=== PATIENT | female | born 1980 | race Caucasian/White ===

== ENCOUNTER 2016-10-29 08:49 | Emergency (ER) | payer OTHER ==
[2016-10-29] MEDS ORDERED: Acetaminophen TAB* 325 MG PO ONE (09:12)
[2016-10-29] MEDS ORDERED: Albuterol/Ipratropium NEB.SOL* Albuterol 2.5 MG/Ipratropium 0.5 MG 3 ML INH ONE (09:12)
--- NOTE | 2016-10-29 09:32 | ED ---
Jt Valdez Karl, scribed for Ellie Vasquez MD on 10/29/16 at 0904 . Influenza-Like Illness - HPI Summary HPI Summary: Pt is a 36 y/o female that presents to the ED c/o "cold-like symptoms" that began 4 days ago and have worsened since. Pt reported that she was having head/ chest cold symptoms 4 days ago and felt like they were clearing up on Saturday Yesterday morning when she woke up and symptoms returned. Pt stated that since yesterday morning it feels like her body is "on fire" and she is suffering from generalized body aches, cough, sore throat, nasal congestion, and vomiting after she eats. Pt states able to drink ok. pt stated that she has tried Nyquil and Ibuprofen to treat her symptoms with her last dose of ibuprofen being at 04:00 this morning. Pt also noted that she has been wheezing during respirations. Pt has been using MDI - last use 6am. Pt has not documented a fever, but feels warm intermittently. Pt concerned has the flu. Call her PCP and was sent to the ED for further eval. Pt did not get flu vaccine. Pt denied ear pain, rash, chest pain, abdominal pain, dysuria, hematuria, itching, or odor. Hx: asthma, chronic migraines, smoker. - History of Current Complaint Chief Complaint: EDFever Time Seen by Provider: 10/29/16 09:00 Hx Obtained From: Patient Onset/Duration: Gradual Onset, Lasting Days - 4, Worse Since - yesterday morning Severity: Moderate Associated Signs & Symptoms: Myalgia, Cough, Sore Throat, Nasal Congestion, Vomiting - Allergy/Home Medications Allergies/Adverse Reactions: Allergies Allergy/AdvReac Type Severity Reaction Status Date / Time Adhesive Tape [Paper Tape] Allergy Unknown Verified 10/15/16 22:16 Reaction Details Aspirin Allergy stops her Verified 10/15/16 22:16 heart Penicillins Allergy stops her Verified 10/15/16 22:16 heart Sulfamethoxazole Allergy Hives Verified 10/15/16 22:16 w/Trimethoprim [From Bactrim] PMH/Surg Hx/FS Hx/Imm Hx Previously Healthy: Yes Endocrine/Hematology History: Denies: Hx Anticoagulant Therapy, Hx Diabetes, Hx Thyroid Disease Cardiovascular History: Denies: Hx Hypertension Respiratory History: Reports: Hx Asthma - albuterol as needed, Hx Chronic Obstructive Pulmonary Disease (COPD) GI History: Denies: Hx Ulcer Neurological History: Reports: Hx Migraine Psychiatric History: Reports: Hx Anxiety, Hx Depression - Surgical History Surgery Procedure, Year, and Place: [place] 10/2012. 10/08 abcess removed from face. csection x2 2001, 2002 - Immunization History Date of Tetanus Vaccine: UTD Date of Influenza Vaccine: 2014 Infectious Disease History: No Infectious Disease History: Reports: Hx of Known/Suspected MRSA - son has mrsa Denies: Hx Clostridium Difficile, Hx Hepatitis, Hx Human Immunodeficiency Virus (HIV), Hx Shingles, Hx Tuberculosis, Traveled Outside the [place] in Last 30 Days - Family History Known Family History: Positive: Cardiac Disease, Diabetes, Other - uterine CA - mother - Social History Alcohol Use: None Hx Substance Use: No Substance Use Type: Reports: None Hx Tobacco Use: Yes Smoking Status (MU): Light Every Day Tobacco Smoker Type: Cigarettes Amount Used/How Often: 1/2 ppd Review of Systems Positive: Fever - tactile. Negative: Chills Eyes: Negative Negative: Blurred Vision, Drainage, Erythema Positive: Sore Throat, Nasal Discharge - and congestion. Negative: Ear Ache Cardiovascular: Negative Negative: Chest Pain Respiratory: Other - wheezing Positive: Cough Positive: Vomiting. Negative: Nausea Negative: discharge - itching, odor Positive: Myalgia - generalized body aches Negative: Rash Neurological: Negative Negative: Weakness, Numbness Psychological: Normal All Other Systems Reviewed And Are Negative: Yes Physical Exam Triage Information Reviewed: Yes Vital Signs On Initial Exam: Initial Vitals Temp Pulse Resp BP Pulse Ox 97.9 F 104 16 129/65 98 10/29/16 08:52 10/29/16 08:52 10/29/16 08:52 10/29/16 08:52 10/29/16 08:52 Vital Signs Reviewed: Yes Appearance: Positive: No Pain Distress, Well-Nourished. Negative: Well- Appearing - congestion, nasal, tired appearing Skin: Positive: Warm, Skin Color Reflects Adequate Perfusion, Dry Head/Face: Positive: Normal Head/Face Inspection Eyes: Positive: Normal, EOMI, MARYAM ENT: Positive: Hearing grossly normal, Other - mild fluid b/l TM - no erythema, bulge, retraction turbinates inflammed + PND no exudate, no erythema uvula midline. Negative: Pharynx normal, TM bulging, TM dull, TM red Neck: Positive: Supple, Nontender, No Lymphadenopathy Respiratory/Lung Sounds: Positive: Clear to Auscultation, Other - few scattered wheeze, no rhonci No retraction + BS throughout. Negative: Rales, Rhonchi, Wheezes Cardiovascular: Positive: Normal, RRR. Negative: IRR, Murmur Abdomen Description: Positive: Nontender, No Organomegaly. Negative: Soft Bowel Sounds: Positive: Present Musculoskeletal: Positive: Normal Neurological: Positive: Normal, Sensory/Motor Intact, Alert, Oriented to Person Place, Time. Negative: Slurred Speech Psychiatric: Positive: Normal AVPU Assessment: Alert - Joyce Coma Scale Best Eye Response: 4 - Spontaneous Best Motor Response: 6 - Obeys Commands Best Verbal Response: 5 - Oriented Diagnostics - Vital Signs Vital Signs Temp Pulse Resp BP Pulse Ox 10/29/16 08:52 97.9 F 104 16 129/65 98 - Laboratory Lab Statement: Any lab studies that have been ordered have been reviewed, and results considered in the medical decision making process. - Radiology CXR Xray Interpretation: No Acute Changes Radiology Interpretation Completed By: Radiologist - IMPRESSION: NO ACTIVE DISEASE. Re-Evaluation - Re-Evaluation First Eval Change: Improved - Wheezing improved strep and flu neg Will give Rx pred, flonase, z pack work note PCP f/u rest hydrate d/w pt secreation precautions Flu Symptom Course/Dx - Course Course Of Treatment: Strep Test: Negative. Influenza A & B Test: Negative. Assessment/Plan: Pt presents with sinus congestion, sore throat, body aches, cough and wheeze. Diff: URI, strep, sinus infection, influenza, pna. Plan: neb , cxr, flu/strep, APAP - will check as pt unsure of status - Diagnoses Provider Diagnoses: URI (upper respiratory infection), Bronchitis Discharge - Discharge Plan Condition: Stable Disposition: HOME Forms: *Work Release Referrals: Rene Barrera MD [Primary Care Provider] - Additional Instructions: - Stay well hydrated - drink plenty on non-alcoholic, non-caffinated beverage - For the first 8 hours - eat and drink bland foods - dry toast, crackers, scrambled eggs, pasta noodles. If you tolerate this okay, slowly add food to your diet. Wait until you are feeling better before eating spicy food, acidic food, tomato based food - Use nasal spray as directed for congestion. Take prednisone as prescribed, - Okay to alternate ibuprofen (advil, motrin) and tylenol every 3 hours for pain or fever - Take antibiotics as prescribed until gone - Once you have been on antibiotics for 2 days, change your pillow case and your toothbrush -contact your doctor to schedule a follow-up appointment. Contact your doctor or return with questions or concerns The documentation as recorded by the Jt thornton Karl accurately reflects the service I personally performed and the decisions made by , Ellie Vasquez MD.
--- NOTE | 2016-10-29 10:00 | RAD ---
INDICATION: Cough and fever COMPARISON: October 13, 2014 TECHNIQUE: PA and lateral dual-energy views were obtained. FINDINGS: Bones/Soft Tissues: There are no acute bony findings. Cardiomediastinal: The cardiomediastinal silhouette is normal. Lungs: There are no infiltrates. Pleura: There are no pleural effusions. Other: None IMPRESSION: NO ACTIVE DISEASE.
[2016-10-29 10:26] VITALS: BP 128/74
== END 2016-10-29 10:24 | disposition home or self-care (01) ==
LOC: ED 08:49
DX: J44.0 Chronic obstructive pulmonary disease with (acute) lower respiratory infection (principal); J45.909 Unspecified asthma, uncomplicated; F41.9 Anxiety disorder, unspecified; F32.9 Major depressive disorder, single episode, unspecified; F17.210 Nicotine dependence, cigarettes, uncomplicated; Z88.0 Allergy status to penicillin; Z88.2 Allergy status to sulfonamides; Z88.6 Allergy status to analgesic agent
CPT/HCPCS: 71020; 87502; 87651; 99282; A9270-GY

== ENCOUNTER 2016-10-29 22:26 | Emergency (ER) | payer OTHER ==
[2016-10-29] MEDS ORDERED: Ketorolac INJ* 60 MG/2 ML VIAL IM ONE (22:43)
--- NOTE | 2016-10-29 23:28 | ED ---
Ramon Valdez Erika, scribed for Mauricio Ardon MD on 10/29/16 at 2249 . Headache - HPI Summary HPI Summary: Patient is a 36-year-old female presenting to the ED with c/o a headache. Pt reports that she was seen in the ED this morning for cold-like symptoms, and was diagnosed with bronchitis. She was prescribed Abx, but was unable to mushroom picker the prescription today. She reports she developed a migraine this evening, and took ibuprofen but that did not alleviate the pain. She states she then developed pallor, facial numbness, and palpitations. She also felt nauseated, which has resolved. Pt has a Hx migraines - most recently 1 week ago - and used to take Topamax and magnesium oxide. FHx cardiac disease. Pt is followed by Dr. Barrera. - History Of Current Complaint Chief Complaint: EDHeadache Stated Complaint: HEADACHE,ELEVATED HEART RATE Time Seen by Provider: 10/29/16 22:35 Hx Obtained From: Patient Hx Last Menstrual Period: 09/06/16 Onset/Duration: Gradual Onset, Started hours ago, Still Present Initially Headache Was: Moderate Timing: Constant Character: Migraine Aggravating Factor: Nothing Allevating Factors: Nothing Associated Signs And Symptoms: Nausea - Allergies/Home Medications Allergies/Adverse Reactions: Allergies Allergy/AdvReac Type Severity Reaction Status Date / Time Adhesive Tape [Paper Tape] Allergy Unknown Verified 10/15/16 22:16 Reaction Details Aspirin Allergy stops her Verified 10/15/16 22:16 heart Penicillins Allergy stops her Verified 10/15/16 22:16 heart Sulfamethoxazole Allergy Hives Verified 10/15/16 22:16 w/Trimethoprim [From Bactrim] PMH/Surg Hx/FS Hx/Imm Hx Endocrine/Hematology History: Denies: Hx Anticoagulant Therapy, Hx Diabetes, Hx Thyroid Disease Cardiovascular History: Denies: Hx Hypertension Respiratory History: Reports: Hx Asthma - albuterol as needed, Hx Chronic Obstructive Pulmonary Disease (COPD) GI History: Denies: Hx Ulcer Neurological History: Reports: Hx Migraine Psychiatric History: Reports: Hx Anxiety, Hx Depression - Surgical History Surgery Procedure, Year, and Place: [place] 10/2012. 10/08 abcess removed from face. csection x2 2001, 2002 - Immunization History Date of Tetanus Vaccine: UTD Date of Influenza Vaccine: 2014 Infectious Disease History: No Infectious Disease History: Reports: Hx of Known/Suspected MRSA - son has mrsa Denies: Hx Clostridium Difficile, Hx Hepatitis, Hx Human Immunodeficiency Virus (HIV), Hx Shingles, Hx Tuberculosis, Traveled Outside the [place] in Last 30 Days - Family History Known Family History: Positive: Cardiac Disease, Hypertension, Diabetes, Other - uterine CA - mother - Social History Alcohol Use: None Hx Substance Use: No Substance Use Type: Reports: None Hx Tobacco Use: Yes Smoking Status (MU): Light Every Day Tobacco Smoker Type: Cigarettes Amount Used/How Often: 1/2 ppd Review of Systems Constitutional: Other - Pallor Positive: Sore Throat, Nasal Discharge Positive: Palpitations Positive: Cough Positive: Nausea - resolved Positive: Headache, Numbness - facial All Other Systems Reviewed And Are Negative: Yes Physical Exam Triage Information Reviewed: Yes Vital Signs On Initial Exam: Initial Vitals Temp Pulse Resp BP Pulse Ox 98.8 F 92 18 127/94 94 10/29/16 22:32 10/29/16 22:32 10/29/16 22:32 10/29/16 22:32 10/29/16 22:32 Vital Signs Reviewed: Yes Appearance: Positive: Well-Appearing, No Pain Distress Skin: Positive: Warm Head/Face: Positive: Normal Head/Face Inspection. Negative: Temporal Artery Tenderness Eyes: Positive: EOMI, MARYAM ENT: Positive: Hearing grossly normal Neck: Positive: Supple Respiratory/Lung Sounds: Positive: Breath Sounds Present, Decreased Breath Sounds Cardiovascular: Positive: Normal Abdomen Description: Positive: Nontender, No Organomegaly, Soft Bowel Sounds: Positive: Present Musculoskeletal: Positive: Strength/ROM Intact Neurological: Positive: Sensory/Motor Intact, Alert, Oriented to Person Place, Time Psychiatric: Positive: Normal Diagnostics - Vital Signs Vital Signs Temp Pulse Resp BP Pulse Ox 10/29/16 22:32 98.8 F 92 18 127/94 94 - Laboratory Lab Statement: Any lab studies that have been ordered have been reviewed, and results considered in the medical decision making process. - EKG 22:25 Cardiac Rate: NL - at 83 bpm EKG Rhythm: Sinus Rhythm Re-Evaluation - Re-Evaluation First Eval Re-Evaluation Time: 23:47 Change: Improved Headache Course/Dx - Course Assessment/Plan: A 36 y/o F presents to the ED with a CC of headache. She was given Toradol in the ED, and states she feels improved on re-evaluation. Pt will be discharged home with follow up from her PCP - Diagnoses Provider Diagnoses: Migraine headache Discharge - Discharge Plan Condition: Stable Disposition: HOME Patient Education Materials: Migraine Headache (ED) Referrals: Rene Barrera MD [Primary Care Provider] - Additional Instructions: Please follow up with your PCP The documentation as recorded by the Ramon thornton Erika accurately reflects the service I personally performed and the decisions made by me, Mauricio Ardon MD.
[2016-10-30 00:15] VITALS: BP 120/83
== END 2016-10-30 00:14 | disposition home or self-care (01) ==
LOC: ED 22:26
DX: G43.909 Migraine, unspecified, not intractable, without status migrainosus (principal); R00.2 Palpitations; R20.0 Anesthesia of skin
CPT/HCPCS: 93005; 96374; 99282; J1885

== ENCOUNTER 2016-11-16 09:32 | Emergency (ER) | payer OTHER ==
[2016-11-16] MEDS ORDERED: Famotidine IV* 10 MG/ML 2 ML (20 mg) IV ONE (16:02)
[2016-11-16] MEDS ORDERED: NS 0.9% 1000 ML* 2,000 ML IV ONE (16:02)
[2016-11-16] MEDS ORDERED: Ketorolac INJ* 30 MG/ML 1 ML VIAL IV ONE (16:02)
[2016-11-16] MEDS ORDERED: Ondansetron INJ* 2 MG/ML VIAL IV ONE (16:02)
[2016-11-16 16:30] LABS: Hematocrit 44 % (35-47); Hemoglobin 14.4 g/dl (12.0-16.0); Mean Corpuscular HGB Conc 32 g/dl (31-36); Mean Corpuscular Hemoglobin 29 pg (27-31); Mean Corpuscular Volume 90 fL (80-97); Mean Platelet Volume 10 um3 (7.4-10.4); Red Blood Count 4.94 10^6/ul (4.0-5.4); Red Cell Distribution Width 14 % (10.5-15); White Blood Count 15.4 10^3/ul (3.5-10.8)
--- NOTE | 2016-11-16 16:36 | ED ---
Abdominal Pain/Female - HPI Summary HPI Summary: Patient here with a CC of nausea, vomiting, chills, weakness and muscle aches present since last evening. Denies D/C. Johnny hematemasis. Denies melena. States has vomited 10+ times. Did not eat anything unusual and no one else became sick with eating the same food. Denies sick contacts. Has multiple medications she takes daily. PMHx of asthma, migraines, "twisted intestines." She is to have surgery to get them untwisted, but is unsure when that will be scheduled. Patient thinks she may have had a fever, but did not check. - History of Current Complaint Chief Complaint: EDAbdPain Stated Complaint: VOMITING / DIZZY Hx Obtained From: Patient Hx Last Menstrual Period: 09/06/16 ?: No Onset/Duration: Sudden Onset Timing: Constant Severity Initially: Moderate Severity Currently: Moderate Pain Intensity: 8 Pain Scale Used: 0-10 Numeric Location: Diffuse - nausea Radiates: No Character: Sharp, Cramping Aggravating Factor(s): Nothing Alleviating Factor(s): Vomiting Associated Signs and Symptoms: Positive: Decreased Appetite, Nausea, Vomiting - Risk Factors Ectopic Risk Factor: Maternal Age ^ 30 Ovarian Torsion Risk Factor: Reproductive Age Allergies/Adverse Reactions: Allergies Allergy/AdvReac Type Severity Reaction Status Date / Time Adhesive Tape [Paper Tape] Allergy Unknown Verified 11/16/16 09:40 Reaction Details Aspirin Allergy stops her Verified 11/16/16 09:40 heart Penicillins Allergy stops her Verified 11/16/16 09:40 heart Sulfamethoxazole Allergy Hives Verified 11/16/16 09:40 w/Trimethoprim [From Bactrim] PMH/Surg Hx/FS Hx/Imm Hx Previously Healthy: Yes Endocrine/Hematology History: Denies: Hx Anticoagulant Therapy, Hx Diabetes, Hx Thyroid Disease Cardiovascular History: Denies: Hx Hypertension Respiratory History: Reports: Hx Asthma - albuterol as needed, Hx Chronic Obstructive Pulmonary Disease (COPD) GI History: Denies: Hx Ulcer Neurological History: Reports: Hx Migraine Psychiatric History: Reports: Hx Anxiety, Hx Depression - Surgical History Surgery Procedure, Year, and Place: [place] 10/2012. 10/08 abcess removed from face. csection x2 2001, 2002 - Immunization History Date of Tetanus Vaccine: UTD Date of Influenza Vaccine: 2014 Infectious Disease History: No Infectious Disease History: Reports: Hx of Known/Suspected MRSA - son has mrsa Denies: Hx Clostridium Difficile, Hx Hepatitis, Hx Human Immunodeficiency Virus (HIV), Hx Shingles, Hx Tuberculosis, Traveled Outside the [place] in Last 30 Days - Family History Known Family History: Positive: Cardiac Disease, Hypertension, Diabetes, Other - uterine CA - mother - Social History Occupation: Employed Full-time Lives: With Family Alcohol Use: None Hx Substance Use: No Substance Use Type: Reports: None Hx Tobacco Use: Yes Smoking Status (MU): Light Every Day Tobacco Smoker Type: Cigarettes Amount Used/How Often: 1/2 ppd Review of Systems Positive: Fatigue, Skin Diaphoresis Eyes: Negative Positive: Ear Ache Cardiovascular: Negative Respiratory: Negative Positive: Vomiting, Nausea Genitourinary: Negative Musculoskeletal: Negative Skin: Negative Positive: Headache Psychological: Normal All Other Systems Reviewed And Are Negative: Yes Physical Exam Triage Information Reviewed: Yes Vital Signs On Initial Exam: Initial Vitals Temp Pulse Resp BP Pulse Ox 99.5 F 106 16 127/71 100 11/16/16 09:37 11/16/16 09:37 11/16/16 09:37 11/16/16 09:37 11/16/16 09:37 Appearance: Positive: No Pain Distress, Ill-Appearing Skin: Positive: Warm, Skin Color Reflects Adequate Perfusion Head/Face: Positive: Normal Head/Face Inspection Eyes: Positive: Normal, EOMI, MARYAM, Conjunctiva Clear ENT: Positive: Normal ENT inspection, Pharynx normal, TMs normal Neck: Positive: Nontender, No Lymphadenopathy Respiratory/Lung Sounds: Positive: Clear to Auscultation, Breath Sounds Present Cardiovascular: Positive: Normal Abdomen Description: Positive: Nontender, No Organomegaly, Soft, Other: - no mcburney's point, negative rovsings, negative obturator, negative psoas Bowel Sounds: Positive: Present Musculoskeletal: Positive: Normal, Strength/ROM Intact Neurological: Positive: Normal Psychiatric: Positive: Normal AVPU Assessment: Alert Diagnostics - Vital Signs Vital Signs Temp Pulse Resp BP Pulse Ox 11/16/16 15:23 99.7 F 94 18 108/71 96 11/16/16 09:37 99.5 F 106 16 127/71 100 - Laboratory Result Diagrams: 11/16/16 15:25 11/16/16 16:51 Lab Statement: Any lab studies that have been ordered have been reviewed, and results considered in the medical decision making process. Abdominal Pain Fem Course/Dx - Course Course Of Treatment: 2 bags fluids, zofran, pepcid and toradol given. no fever, neg psoas, obturator and wbc WNL. Sudden onset 2 hours after eating, food relation likely. Flu negative. Patient feeling much better and ready to go home. - Diagnoses Differential Diagnosis: Positive: Peptic Ulcer Disease, Other - nausea, vomiting , gastroenteritis, appendicitis Provider Diagnoses: Nausea & vomiting Is Visit Related: No Discharge - Discharge Plan Condition: Stable Disposition: HOME Prescriptions: Naproxen TAB* [Naprosyn TAB*] 500 mg PO Q8H PRN #30 tab MDD 3 PRN Reason: Pain Ondansetron TAB* [Zofran Tab*] 4 mg PO Q6H PRN #10 tab MDD 4 PRN Reason: Nausea Patient Education Materials: Acute Nausea and Vomiting (ED) Referrals: Rene Barrera MD [Primary Care Provider] - Additional Instructions: Dx. Nausea and vomiting If you are having episodes of vomiting, you may become dehydrated. Drink plenty of fluids. If you feel you cannot keep enough fluids down, you may supplement with drinks like Gatorade or V8 juice. This will help balance your electrolytes which are lost during dehydration. Take any medication prescribed to you as directed. Zofran: This medicine may make you dizzy. Do not drive or do anything else that could be dangerous until you know how this medicine affects you. Naproxen 500mg tabs: Take 1 tab every 8 hours as needed for pain. If you develop fever, chills, worsening pain uncontrolled with OTC medications, please come back to ED.
[2016-11-16 17:16] LABS: BUN/Creatinine Ratio 26.9 (8-20); Calcium 8.7 mg/dL (8.6-10.3); EGFR African American 128.8 (>60); EGFR Non-African American 100.2 (>60); Globulin 2.8 g/dL (2-4); Magnesium 1.9 mg/dL (1.9-2.7); Potassium 3.5 mmol/L (3.5-5.0); Total Bilirubin 1.1 mg/dL (0.2-1.0); Total Protein 6.8 g/dL (6.4-8.9)
[2016-11-16 17:41] VITALS: BP 109/72
[2016-11-16] MEDS ORDERED: Ondansetron TAB* 4 MG PO ONE (18:41)
[2016-11-16] MEDS ORDERED: Ondansetron ODT TAB* 4 MG ONE (18:43)
[2016-11-16 18:44] LABS: Urine Bacteria Absent (Absent); Urine Bilirubin Negative (Negative); Urine Glucose Negative (Negative); Urine Nitrite Negative (Negative)
== END 2016-11-16 18:51 | disposition home or self-care (01) ==
LOC: ED 09:32
DX: R11.2 Nausea with vomiting, unspecified (principal); R53.1 Weakness; F17.210 Nicotine dependence, cigarettes, uncomplicated; R51 Headache; H92.09 Otalgia, unspecified ear; R53.83 Other fatigue
CPT/HCPCS: 36415; 80053; 81003; 81015; 83690; 83735; 84702; 85025; 87086; 87502; 96361; 96374; 96375; 99283; A9270-GY; J1885; J2405

== ENCOUNTER 2016-12-17 15:32 | Emergency (ER) | payer OTHER ==
[2016-12-17 15:45] VITALS: BP 125/75
[2016-12-17] MEDS ORDERED: NS 0.9% 1000 ML* 1,000 ML IV ONE (17:05)
[2016-12-17] MEDS ORDERED: Morphine INJ* 2 MG/ML 1 ML CARPUJECT IV ONE (17:06)
--- NOTE | 2016-12-18 19:49 | UC ---
Fredis Valdez Aidan, scribed for Sangeeta Merlos MD on 12/17/16 at 1705 . Complaint Female HPI - HPI Summary HPI Summary: 36 y/o female presents to the Urgent Care with a complaint of acute, constant, severe (reported 10/10) right flank pain and gross hematuria for the past 24 hours. She has a history of kidney stones and had her last one "laser blasted" roughly 6 months ago in [facility]. Last time she had a stone, it was as " large as a half-dollar" and she had stents. Five hours ago, she took Tylenol, which did not alleviate much pain at all. Pt denies and had her period 2 days ago. Lastly, she is allergic to penicillin and aspirin. Pt is new to this area and is not established with urology in [place]. - History Of Current Complaint Chief Complaint: UCGU Stated Complaint: BLOOD IN URINE.BACK PAIN Time Seen by Provider: 12/17/16 16:53 Hx Obtained From: Patient Hx Last Menstrual Period: 12/14/16 ?: No Onset/Duration: Sudden Onset, Lasting Hours, Still Present Timing: Constant, Lasting Hours Severity Initially: Severe Severity Currently: Severe Pain Intensity: 10 Pain Scale Used: 0-10 Numeric Character: Sharp Aggravating Factor(s): Nothing Alleviating Factor(s): Nothing - tylenol did not alleviate her pain Associated Signs And Symptoms: Negative: Negative - right flank pain and hematuria Related Hx: Similar Episode/Dx as: - kidney stones - Allergies/Home Medications Allergies/Adverse Reactions: Allergies Allergy/AdvReac Type Severity Reaction Status Date / Time Adhesive Tape [Paper Tape] Allergy Unknown Verified 12/17/16 15:46 Reaction Details Aspirin Allergy stops her Verified 12/17/16 15:46 heart Penicillins Allergy stops her Verified 12/17/16 15:46 heart Sulfamethoxazole Allergy Hives Verified 12/17/16 15:46 w/Trimethoprim [From Bactrim] PMH/Surg Hx/FS Hx/Imm Hx Endocrine History Of: Denies: Diabetes, Thyroid Disease Cardiovascular History Of: Denies: Cardiac Disorders, Hypertension Respiratory History Of: Reports: COPD, Asthma - albuterol as needed GI/ History Of: Denies: Ulcer Neurological History Of: Reports: Migraine Psychological History Of: Reports: Anxiety, Depression Other History Of: Negative For: Anticoagulant Therapy - Surgical History Surgical History: Yes Surgery Procedure, Year, and Place: [place] 10/2012. 10/08 abcess removed from face. csection x2 2001, 2002 - Family History Known Family History: Positive: Cardiac Disease, Hypertension, Diabetes, Other - uterine CA - mother - Social History Occupation: Unemployed Lives: Alone Alcohol Use: None Substance Use Type: None Smoking Status (MU): Light Every Day Tobacco Smoker Type: Cigarettes Amount Used/How Often: 1/2 ppd Household Exposure Type: Cigarettes Review of Systems Constitutional: Negative Skin: Negative Eyes: Negative ENT: Negative Respiratory: Negative Cardiovascular: Negative Gastrointestinal: Abdominal Pain Genitourinary: Hematuria, Other - right flank pain Motor: Negative Neurovascular: Negative Musculoskeletal: Negative Neurological: Negative Psychological: Negative All Other Systems Reviewed And Are Negative: Yes Physical Exam Triage Information Reviewed: Yes Appearance: Well-Nourished, Ill-Appearing, Pain Distress - rocking in pain, tearful Vital Signs: Initial Vital Signs Temp 98.0 F 12/17/16 15:42 Pulse 78 12/17/16 15:42 Resp 20 12/17/16 15:42 BP 125/75 12/17/16 15:42 Pulse Ox 100 12/17/16 15:42 Vital Signs Reviewed: Yes Eyes: Positive: Conjunctiva Clear ENT: Positive: Normal ENT inspection Neck: Positive: Supple Respiratory: Positive: No respiratory distress Cardiovascular: Positive: RRR, Pulses Normal, Brisk Capillary Refill Abdomen Description: Positive: Soft, CVA Tenderness (R). Negative: Nontender - tenderness at right-mid abdomen, Distended, Guarding Bowel Sounds: Positive: Present Musculoskeletal: Positive: Strength Intact, ROM Intact Neurological: Positive: Alert, Muscle Tone Normal Psychological Exam: Normal Skin Exam: Normal Complaint Female Dx - Course Course Of Treatment: With the severity of pt's pain and her allergies and her history of large stones and gross hematuria will send pt to the ED for further evaluation, pain control, hydration and labs. - Differential Dx/Diagnosis Differential Diagnosis/HQI/PQRI: Renal Colic, Ureteral Stone Provider Diagnoses: acute right flank pain Discharge - Discharge Plan Condition: Stable Disposition: TRANS [facility] FAC Referrals: Rene Barrera MD [Primary Care Provider] - The documentation as recorded by the Fredis thornton Aidan accurately reflects the service I personally performed and the decisions made by , Sangeeta Merlos MD.
== END 2016-12-17 17:37 | disposition short-term general hospital (02) ==
LOC: UCEAST 15:32
DX: R10.9 Unspecified abdominal pain (principal); R31.0 Gross hematuria; M54.9 Dorsalgia, unspecified; Z87.442 Personal history of urinary calculi; Z90.49 Acquired absence of other specified parts of digestive tract; Z88.6 Allergy status to analgesic agent; Z88.0 Allergy status to penicillin; Z88.2 Allergy status to sulfonamides; F17.210 Nicotine dependence, cigarettes, uncomplicated
CPT/HCPCS: 96360; 96361; 96374; 99213; G0463; J2270

== ENCOUNTER 2016-12-17 18:06 | Emergency (ER) | payer OTHER ==
[2016-12-17] MEDS ORDERED: NS 0.9% 1000 ML* 1,000 ML IV ONE (18:19)
[2016-12-17 18:36] LABS: Hematocrit 42 % (35-47); Hemoglobin 13.5 g/dl (12.0-16.0); Mean Corpuscular HGB Conc 32 g/dl (31-36); Mean Corpuscular Hemoglobin 29 pg (27-31); Mean Corpuscular Volume 90 fL (80-97); Mean Platelet Volume 9 um3 (7.4-10.4); Red Cell Distribution Width 13 % (10.5-15); White Blood Count 12.5 10^3/ul (3.5-10.8)
--- NOTE | 2016-12-17 19:08 | RAD ---
Indication: Right flank pain. CT of the abdomen and pelvis was performed without oral or IV contrast administration. Coronal and sagittal reconstructed images were obtained. The lung bases demonstrate no pleural fluid, nodules or masses. Heart is of normal size without evidence of pericardial effusion. Liver is normal in size. No focal lesions or intrahepatic ductal dilatation is noted. The patient is status post cholecystectomy. The spleen is normal in size. The pancreas demonstrates no mass or pancreatic duct dilatation. The common duct is not dilated. The patient status post cholecystectomy. No adrenal lesions are noted. The kidneys demonstrate no hydronephrosis in either kidney although tiny punctate areas of high density are scattered throughout both kidneys. These are nonspecific. Aorta and vena cava are unremarkable. No retroperitoneal adenopathy is noted. No dilated loops of bowel are noted. There is anterior abdominal wall hernia just above the umbilicus midline containing omentum. The appendix is visualized and is normal. No dilated loops of bowel are noted. The urinary bladder is unremarkable. No hernias are noted. IMPRESSION: Anterior abdominal wall hernia containing omentum. No hydronephrosis in either kidney although tiny barely visible punctate areas of high density are noted in both kidneys. Patient status post cholecystectomy. Normal appendix.
[2016-12-17 19:16] LABS: C Reactive Protein 3.75 mg/L (< 5.00)
[2016-12-17 19:17] LABS: Urine Bacteria Absent (Absent); Urine Bilirubin Negative (Negative); Urine Glucose Negative (Negative); Urine Nitrite Negative (Negative)
[2016-12-17] MEDS ORDERED: HYDROcodone/ACETAMIN 5-325 MG* 1 TAB PO ONE (19:44)
[2016-12-17] MEDS ORDERED: Cyclobenzaprine TAB* 10 MG PO ONE (19:44)
--- NOTE | 2016-12-17 19:44 | ED ---
Ritchie Valdez Anna, scribed for Jovana Heart MD on 12/17/16 at 1912 . Abdominal Pain/Female - HPI Summary HPI Summary: Patient is a 36 y/o female BIBA to [facility] presenting with constant, right-sided flank pain that began one week ago and worsened last night. It started at severity 3/10 and peaked at 10/10. The pain radiates to her suprapubic region. Denies dysuria. 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 - History of Current Complaint Chief Complaint: EDFlankPain Stated Complaint: ABD PAIN Hx Obtained From: Patient Hx Last Menstrual Period: 12/14/16 Pain Intensity: 8 Allergies/Adverse Reactions: Allergies Allergy/AdvReac Type Severity Reaction Status Date / Time Adhesive Tape [Paper Tape] Allergy Unknown Verified 12/17/16 15:46 Reaction Details Aspirin Allergy stops her Verified 12/17/16 15:46 heart Penicillins Allergy stops her Verified 12/17/16 15:46 heart Sulfamethoxazole Allergy Hives Verified 12/17/16 15:46 w/Trimethoprim [From Bactrim] PMH/Surg Hx/FS Hx/Imm Hx Previously Healthy: Yes - hypoglycemia Endocrine/Hematology History: Denies: Hx Anticoagulant Therapy, Hx Diabetes, Hx Thyroid Disease Cardiovascular History: Denies: Hx Hypertension Respiratory History: Reports: Hx Asthma - albuterol as needed, Hx Chronic Obstructive Pulmonary Disease (COPD) GI History: Denies: Hx Ulcer History: Reports: Hx Kidney Stones Neurological History: Reports: Hx Migraine Psychiatric History: Reports: Hx Anxiety, Hx Depression - Surgical History Surgery Procedure, Year, and Place: [place] 10/2012. 10/08 abcess removed from face. csection x2 2001, 2002. - Immunization History Date of Tetanus Vaccine: UTD Date of Influenza Vaccine: 2014 Infectious Disease History: No Infectious Disease History: Reports: Hx of Known/Suspected MRSA - son has mrsa Denies: Hx Clostridium Difficile, Hx Hepatitis, Hx Human Immunodeficiency Virus (HIV), Hx Shingles, Hx Tuberculosis, Traveled Outside the [place] in Last 30 Days - Family History Known Family History: Positive: Cardiac Disease, Hypertension, Diabetes, Other - uterine CA - mother - Social History Occupation: Employed Full-time Lives: With Family - with fiancee Alcohol Use: None Hx Substance Use: No Substance Use Type: Reports: None Hx Tobacco Use: Yes Smoking Status (MU): Light Every Day Tobacco Smoker Type: Cigarettes Amount Used/How Often: 1/2 ppd Review of Systems Positive: Abdominal Pain Negative: dysuria All Other Systems Reviewed And Are Negative: Yes Physical Exam Triage Information Reviewed: Yes Vital Signs On Initial Exam: Initial Vitals Temp Pulse Resp BP Pulse Ox 97.8 F 71 18 108/70 97 12/17/16 18:32 12/17/16 18:32 12/17/16 18:32 12/17/16 18:32 12/17/16 18:32 Vital Signs Reviewed: Yes Appearance: Positive: Well-Appearing, No Pain Distress Skin: Positive: Warm, Skin Color Reflects Adequate Perfusion, Dry ENT: Positive: Pharynx normal, TMs normal Neck: Positive: Supple, Nontender Respiratory/Lung Sounds: Positive: Clear to Auscultation, Breath Sounds Present. Negative: Rales, Rhonchi, Wheezes Cardiovascular: Positive: RRR, Other - No gallops. Negative: Murmur, Rub Abdomen Description: Positive: Soft, Other: - Slight right flank pain that radiates to suprapubic region Bowel Sounds: Positive: Present Musculoskeletal: Positive: Strength/ROM Intact. Negative: Edema Left, Edema Right Neurological: Positive: Sensory/Motor Intact, Alert, Oriented to Person Place, Time, CN Intact II-III - II-XII Psychiatric: Positive: Affect/Mood Appropriate Diagnostics - Vital Signs Vital Signs Temp Pulse Resp BP Pulse Ox 12/17/16 18:32 97.8 F 71 18 108/70 97 - Laboratory Lab Results: Lab Results 12/17/16 Range/Units 17:16 WBC 12.5 H (3.5-10.8) 10^3/ul RBC 4.70 (4.0-5.4) 10^6/ul Hgb 13.5 (12.0-16.0) g/dl Hct 42 (35-47) % MCV 90 (80-97) fL MCH 29 (27-31) pg MCHC 32 (31-36) g/dl RDW 13 (10.5-15) % Plt Count 295 (150-450) 10^3/ul MPV 9 (7.4-10.4) um3 Neut % (Auto) 60.4 (38-83) % Lymph % (Auto) 34.0 (25-47) % Morehouse % (Auto) 3.0 (1-9) % Eos % (Auto) 1.6 (0-6) % Baso % (Auto) 1.0 (0-2) % Absolute Neuts (auto) 7.6 (1.5-7.7) 10^3/ul Absolute Lymphs (auto) 4.3 (1.0-4.8) 10^3/ul Absolute Monos (auto) 0.4 (0-0.8) 10^3/ul Absolute Eos (auto) 0.2 (0-0.6) 10^3/ul Absolute Basos (auto) 0.1 (0-0.2) 10^3/ul Absolute Nucleated RBC 0 10^3/ul Nucleated RBC % 0 Result Diagrams: 12/17/16 17:16 Lab Statement: Any lab studies that have been ordered have been reviewed, and results considered in the medical decision making process. - CT CT abd/Pel CT Interpretation: Positive (See Comments) CT Interpretation Completed By: Radiologist - IMPRESSION: Anterior abdominal wall hernia containing omentum. No hydronephrosis in either kidney although tiny barely visible punctate areas of high density are noted in both kidneys. Patient status post cholecystectomy. Normal appendix. Abdominal Pain Fem Course/Dx - Course Course Of Treatment: 36 yo who reports hx of kidney stones here with flank pain , no stone on ct, normal urine and essentially normal labs. on reexamination she has mild left paraspinal lumbar tenderness l4, l5 denies trauma. no rash normal neuro exam. will send with small dose of pain meds pt denies any addiction history - Diagnoses Provider Diagnoses: Lumbar back pain Discharge - Discharge Plan Condition: Stable Disposition: HOME The documentation as recorded by the Ritchie thornton Anna accurately reflects the service I personally performed and the decisions made by me, Jovana Heart MD.
[2016-12-17 20:28] VITALS: BP 143/78
--- NOTE | 2016-12-20 08:28 | PN ---
Progress Note - Progress Note Note: Patient notified of positive urine culture results and that Macrobid 100 BID x 5 days will be called into [facility] for her. No further action needed.
== END 2016-12-17 20:26 | disposition home or self-care (01) ==
LOC: ED 18:06
DX: M54.5 Low back pain (principal); Z87.442 Personal history of urinary calculi; F17.210 Nicotine dependence, cigarettes, uncomplicated; J45.909 Unspecified asthma, uncomplicated; K43.9 Ventral hernia without obstruction or gangrene; Z88.0 Allergy status to penicillin; Z88.2 Allergy status to sulfonamides
CPT/HCPCS: 36415; 74176; 81003; 81015; 83690; 84702; 85025; 86140; 86703; 87077; 87086; 87186; 99282; A9270-GY

== ENCOUNTER 2017-02-22 07:48 | Day surgery (SDC) | payer OTHER ==
[~2017-02-22 07:48] MED LIST: Buffered Lidocaine 1% SYRIN* 3 ML/SYR SYRINGE INTRADERM ONE
[2017-02-22] MEDS ORDERED: Clindamycin 900 MG IVPREMIX(* 900 MG/50 ML SDV IV ONE (08:03)
[2017-02-22] MEDS ORDERED: Midazolam* 1 MG/ML 2 ML VIAL (2 MG) ONE (08:54)
[2017-02-22] MEDS ORDERED: Lidocaine 1% INJ* 10 MG/ML 30 ML SDV ONE (08:58)
[2017-02-22] MEDS ORDERED: Dexamethasone IV* 4 MG/ML 1 ML (4 MG) ONE ×3 (08:58→09:28)
[2017-02-22] MEDS ORDERED: Bupivacaine 0.25% SDV* 30 ML ONE (08:58)
[2017-02-22] MEDS ORDERED: Propofol* 10 MG/ML 20 ML BTL IV PUSH ONE (09:28)
[2017-02-22] MEDS ORDERED: Lidocaine 2% PF * 5 ML VIAL ONE (09:28)
[2017-02-22] MEDS ORDERED: Ondansetron INJ* 2 MG/ML VIAL ONE (09:28)
[2017-02-22] MEDS ORDERED: DiMENhydriNATE IV* 50 MG/ML VIAL IV PUSH PRN (10:19)
[2017-02-22] MEDS ORDERED: Ketorolac INJ* 30 MG/ML 1 ML VIAL IV PRN (10:19)
[2017-02-22] MEDS ORDERED: fentaNYL* 50 MCG/ML 2 ML VIAL (100 MCG VIAL) IV PRN (10:19)
[2017-02-22] MEDS ORDERED: Ketorolac INJ* 30 MG/ML 1 ML VIAL ONE (10:44)
[2017-02-22 11:20] VITALS: BP 102/68
--- NOTE | 2017-02-22 14:26 | OP ---
DATE OF OPERATION: 02/22/17 - [facility] DATE OF : 82 SURGEON: Dr. Santana Wilson. INFORMATION TECHNOLOGY MANAGER: ANESTHESIOLOGIST: Bairon Stallings MD ANESTHESIA: General anesthesia. PRE-OP DIAGNOSIS: Left foot third webspace intermetatarsal neuroma. POST-OP DIAGNOSIS: Left foot third webspace intermetatarsal neuroma. OPERATIVE PROCEDURE: Excision of left third webspace neuroma. ESTIMATED BLOOD LOSS: IV FLUIDS: LR 1000 cc. DRAINS: None. SPECIMENS: Webspace neuroma. DESCRIPTION OF PROCEDURE: The patient was taken to the operating room and was placed in the supine position. Time-out was called, the OR team agreed. The left foot was then blocked with 5 cc of 1% lidocaine plain to the left third webspace. The foot was then prepped and draped in a sterile manner. The left foot was exsanguinated with an Esmarch bandage and the cuff was inflated to 250 mmHg. Attention was then paid to the left third webspace, where I made a linear incision, this was followed by a sharp and blunt dissection from epidermis, dermis, subcutaneous tissue down to the deep fascia. I made my way to the third webspace, I cut the intermetatarsal ligament that was holding the metatarsal head of the third and fourth metatarsals. I then proceeded to apply pressure plantarly at the webspace causing the neuroma to come out of its plantar vault. I then proceeded to dissect the distal distribution to the adjacent spaces of the third and fourth toes. I then proceeded to dissect proximally following the nerve down to just proximal to the middle of the metatarsal midshaft. I cut the distal branches and then proceeded to cut the proximal portion of the neuroma, was able to excise it, and measured it at 2.5 in length and 1.0 cm in width. I handed over to the circulating nurse, placed in formalin, and sent to Pathology for tissue microscopy. This completed the procedure. The wound was irrigated and closed in a layered anatomical fashion. Deeper layers were closed with a combination of 3-0 and 4-0 Polysorb and the skin was closed with 4-0 nylon. I injected the site with 9 cc of 0.25% Marcaine plain and 4 mg of dexamethasone phosphate. The wound was then placed in dry sterile dressing. The cuff was deflated. The patient was taken to Recovery in stable condition and was later discharged in stable condition as well. [id number]/[facility] #: [id number] LANA
== END 2017-02-22 11:15 | disposition home or self-care (01) ==
LOC: OREAST 07:48
PROVIDERS: ATTEND Podiatrist
DX: G57.82 Other specified mononeuropathies of left lower limb (principal); Z68.31 Body mass index [BMI] 31.0-31.9, adult; J45.909 Unspecified asthma, uncomplicated; F17.210 Nicotine dependence, cigarettes, uncomplicated; F41.8 Other specified anxiety disorders
CPT/HCPCS: 88304; J1100; J1885; J2001; J2250; J2405; J2704

== ENCOUNTER → 2017-03-02 01:24 | Emergency (ER) | payer OTHER ==
[~2017-03-02 01:24] MED LIST changes: -Buffered Lidocaine 1% SYRIN* 3 ML/SYR SYRINGE INTRADERM ONE; +Ibuprofen TAB* 600 MG PO ONE; +Ondansetron ODT TAB* 4 MG PO ONE
[2017-03-02 01:31] VITALS: BP 136/78
--- NOTE | 2017-03-02 03:44 | ED ---
Mallika Valdez Rebecca, scribed for AntolinchitraSergio on 03/02/17 at 0311 . Lower Extremity - HPI Summary HPI Summary: Pt is a 36 y/o F who presents to ED c/o L foot swelling with associated pain and cold sensation. Sx began suddenly yesterday and have been constant and worsening since onset. Pain is currently severe, ranked 13/10 and characterized as sharp. Sx aggravated and alleviated by nothing. Reports nausea and imbalance. Denies calf pain. Pt states "the stitches feel like they are being pulled out." PSHx L foot surgery on 02/22/2017 (1 week ago) to have a nerve removed. Surgery performed at [facility]. - History of Current Complaint Chief Complaint: EDExtremityLower Stated Complaint: LT FOOT PAIN/VOMITING Time Seen by Provider: 03/02/17 02:58 Hx Obtained From: Patient Hx Last Menstrual Period: 12/14/16 Onset of Pain: Prior to Arrival Onset/Duration: Still Present Severity Initially: Severe Severity Currently: Severe Pain Intensity: 13 Pain Scale Used: 0-10 Numeric Timing: Constant Location: Is Discrete @ - L foot Character Of Pain: Sharp Associated Signs And Symptoms: Positive: Swelling, Other - cold sensation on the L foot, nausea, imbalance Aggravating Factor(s): Nothing Alleviating Factor(s): Nothing - Allergies/Home Medications Allergies/Adverse Reactions: Allergies Allergy/AdvReac Type Severity Reaction Status Date / Time Adhesive Tape [Paper Tape] Allergy See Comment Verified 02/22/17 08:19 Aspirin Allergy stops her Verified 02/22/17 08:19 heart Penicillins Allergy stops her Verified 02/22/17 08:19 heart Sulfamethoxazole Allergy Hives Verified 02/22/17 08:19 w/Trimethoprim [From Bactrim] PMH/Surg Hx/FS Hx/Imm Hx Endocrine/Hematology History: Denies: Hx Anticoagulant Therapy, Hx Diabetes, Hx Thyroid Disease Cardiovascular History: Denies: Hx Hypertension Respiratory History: Reports: Hx Asthma - prn meds, Hx Chronic Obstructive Pulmonary Disease (COPD) GI History: Reports: Other GI Disorders - reports umbilical hernia - surgery not scheduled yet Denies: Hx Ulcer History: Reports: Hx Kidney Stones - hx of - last in may 2016 Sensory History: Reports: Hx Contacts or Glasses - glasses Opthamlomology History: Reports: Hx Contacts or Glasses - glasses Neurological History: Reports: Hx Migraine - on meds Psychiatric History: Reports: Hx Anxiety - on meds, Hx Depression - on meds - Surgical History Surgery Procedure, Year, and Place: cholecystectomy 10/2012 - [place]. abcess removed from face - 10/08 - [place]. x2 2001, [place] 2002 - . 10/2016 - [facility] Hx Anesthesia Reactions: Yes - reports wakes with migraines - Immunization History Date of Tetanus Vaccine: UTD Date of Influenza Vaccine: 2014 Infectious Disease History: No Infectious Disease History: Reports: Hx of Known/Suspected MRSA - son has mrsa Denies: Hx Clostridium Difficile, Hx Hepatitis, Hx Human Immunodeficiency Virus (HIV), Hx Shingles, Hx Tuberculosis, Traveled Outside the US in Last 30 Days - Family History Known Family History: Positive: Cardiac Disease, Hypertension, Diabetes, Other - uterine CA - mother - Social History Alcohol Use: None Hx Substance Use: No Substance Use Type: Reports: Excessive Caffeine Substance Use Comment - Amount & Last Used: 6 cups coffee a day Hx Tobacco Use: Yes Smoking Status (MU): Light Every Day Tobacco Smoker Type: Cigarettes Amount Used/How Often: 4-5 cig a day Review of Systems Positive: Nausea Positive: Arthralgia - L foot pain, swelling and cold sensation, Other - Denies calf pain Neurological: Other - Imbalance All Other Systems Reviewed And Are Negative: Yes Physical Exam Triage Information Reviewed: Yes Vital Signs On Initial Exam: Initial Vitals Temp Pulse Resp BP Pulse Ox 98.0 F 98 18 136/78 97 03/02/17 01:28 03/02/17 01:28 03/02/17 01:28 03/02/17 01:28 03/02/17 01:28 Vital Signs Reviewed: Yes Appearance: Positive: Well-Appearing Skin: Positive: Other - Healing wound between the 3rd and 4th toes of the L foot ; feels warm to the touch; No neurovascular deficit Eyes: Positive: EOMI, MARYAM Respiratory/Lung Sounds: Positive: Clear to Auscultation, Breath Sounds Present Cardiovascular: Positive: RRR, Pulses are Symmetrical in both Upper and Lower Extremities Musculoskeletal: Positive: Normal, Strength/ROM Intact Neurological: Positive: Normal, Sensory/Motor Intact, Alert, Oriented to Person Place, Time Psychiatric: Positive: Affect/Mood Appropriate Diagnostics - Vital Signs Vital Signs Temp Pulse Resp BP Pulse Ox 03/02/17 01:28 98.0 F 98 18 136/78 97 - Laboratory Lab Statement: Any lab studies that have been ordered have been reviewed, and results considered in the medical decision making process. Lower Extremity Course/Dx - Course Assessment/Plan: Pt came in with left foot pain. Removed dressing and examined wound. Wound is not infected. The foot is warm to the touch and does not show any signs of infection. Applied dressing again. Pt was given Zofran and Motrin. Pt will be D/C to home with prescriptions for Zofran and Motrin with a followup with her PCP on Saturday with a Dx of postoperative pain. - Diagnoses Provider Diagnoses: Postoperative pain Discharge - Discharge Plan Condition: Stable Disposition: HOME Prescriptions: Ibuprofen TAB* [Motrin TAB* 600 MG] 600 mg PO Q8H PRN #20 tab PRN Reason: Pain Ondansetron ODT TAB* [Zofran 4 MG Odt TAB*] 4 mg PO Q8H PRN #20 tab.odt PRN Reason: Nausea Patient Education Materials: Pain Management After Surgery (GEN) Referrals: Rene Barrera MD [Primary Care Provider] - 03/04/17 The documentation as recorded by the Mallika thornton Rebecca accurately reflects the service I personally performed and the decisions made by Zeina blanco Emmanuel.
== END | disposition home or self-care (01) ==
LOC: ED 01:24
DX: G89.18 Other acute postprocedural pain (principal); R60.0 Localized edema; F17.210 Nicotine dependence, cigarettes, uncomplicated; R11.0 Nausea
CPT/HCPCS: 99282; A9270-GY

== ENCOUNTER 2017-04-15 20:04 | Emergency (ER) | payer OTHER ==
[2017-04-15 20:14] VITALS: BP 121/69
[2017-04-15] MEDS ORDERED: Ondansetron INJ* 2 MG/ML VIAL IV ONE (21:06)
[2017-04-15] MEDS ORDERED: NS 0.9% 1000 ML* 1,000 ML BOLUS SCH (21:15)
--- NOTE | 2017-04-15 22:15 | UC ---
Ilan Valdez Benjamin, scribed for Sangeeta Merlos MD on 04/15/17 at 2111 . Complaint Female HPI - HPI Summary HPI Summary: 36yo female with sudden onset 10/10 abdominal pain for 3 hours. Locates the pain in epigastrium. Pt also reports nausea, dizziness, diaphoresis, and yellow diarrhea x4. Denies any urinary symptoms. Unable to eat anything due to pain. Pt has gall bladder removed 2012. Pt drinks city water. No recent camping or international travel. No sick contacts. No hx of PUD. Hx of abx 4 months ago for left foot surgery. 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 FHx of DM, COPD, Emphysema. - History Of Current Complaint Chief Complaint: UCGI Stated Complaint: STOMACH PAINS/DIZZY Time Seen by Provider: 04/15/17 20:54 Hx Obtained From: Patient, Family/Roll Tester - boyfriend Hx Last Menstrual Period: March 28, 2017 Onset/Duration: Sudden Onset, Lasting Hours - 3 days, Still Present Timing: Constant Severity Initially: Severe Severity Currently: Severe Pain Intensity: 10 Pain Scale Used: 0-10 Numeric Character: Sharp Aggravating Factor(s): Nothing Alleviating Factor(s): Nothing Associated Signs And Symptoms: Positive: Nausea - diarrhea - Allergies/Home Medications Allergies/Adverse Reactions: Allergies Allergy/AdvReac Type Severity Reaction Status Date / Time Adhesive Tape [Paper Tape] Allergy See Comment Verified 04/15/17 20:14 Aspirin Allergy stops her Verified 04/15/17 20:14 heart Penicillins Allergy stops her Verified 04/15/17 20:14 heart Sulfamethoxazole Allergy Hives Verified 04/15/17 20:14 w/Trimethoprim [From Bactrim] PMH/Surg Hx/FS Hx/Imm Hx Previously Healthy: No Respiratory History: COPD Other History Of: Negative For: Anticoagulant Therapy - Surgical History Surgical History: Yes Surgery Procedure, Year, and Place: cholecystectomy 10/2012 - . abcess removed from face - 10/08 - [place]. x2 2001, [place] 2002 - . 10/2016 - [facility] - Family History Known Family History: Positive: Cardiac Disease, Hypertension, Diabetes, Other - uterine CA - mother - Social History Occupation: Unemployed Lives: With Family - with boyfriend Alcohol Use: None Substance Use Type: Excessive Caffeine Substance Use Comment - Amount & Last Used: 2 cups coffee a day Smoking Status (MU): Light Every Day Tobacco Smoker Type: Cigarettes Amount Used/How Often: 4-5 cig a day Household Exposure Type: Cigarettes Review of Systems Constitutional: Negative Skin: Negative Eyes: Negative ENT: Negative Respiratory: Negative Cardiovascular: Negative Gastrointestinal: Abdominal Pain, Diarrhea, Nausea Genitourinary: Negative Motor: Negative Neurovascular: Negative Musculoskeletal: Negative Neurological: Other - dizziness Psychological: Negative All Other Systems Reviewed And Are Negative: Yes Physical Exam Triage Information Reviewed: Yes Appearance: Well-Nourished, Ill-Appearing, Pain Distress - pt states severe, is bent over in half, rocking back and forth, can barely lie down for exam because she sits right back up to rock Vital Signs: Initial Vital Signs Temp 97.9 F 04/15/17 20:10 Pulse 98 04/15/17 20:10 Resp 18 04/15/17 20:10 BP 121/69 04/15/17 20:10 Pulse Ox 98 04/15/17 20:10 Vital Signs Reviewed: Yes Eyes: Positive: Conjunctiva Clear ENT: Positive: Hearing grossly normal. Negative: Muffled/hoarse voice Neck: Positive: Supple Respiratory: Positive: Lungs clear, Normal breath sounds, No respiratory distress Cardiovascular: Positive: RRR, No Murmur, Pulses Normal Abdomen Description: Positive: No Organomegaly, Soft, Guarding - voluntary, Other: - tenderness in epigastric region with guarding, no rebound.. Negative: CVA Tenderness (R), CVA Tenderness (L), Distended Bowel Sounds: Positive: Present Musculoskeletal: Positive: Strength Intact, ROM Intact Neurological: Positive: Alert, Muscle Tone Normal Psychological Exam: Normal Skin Exam: Normal Complaint Female Dx - Course Course Of Treatment: Reviewed medication lists and known allergies. 36yo female s/p [place] with sudden onset 10/10 severe epigastric abdominal pain since 3 hours ago. Pt is rocking in her wheelchair due to pain. Pt reports nausea, dizziness, and yellow diarrhea x4 as well. No urinary symptoms. Pt has tenderness in epigastric region with guarding, no rebound. Pt was on abx 4 months ago for her foot surgery. 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 Hx of COPD and cholecystectomy. Pt is a smoker. Pt will be sent to [facility] by ambulance for higher level of care. Pt requests ambulance when offered options for transfer. - Differential Dx/Diagnosis Differential Diagnosis/HQI/PQRI: Appendicitis, Other - pancreatitis, hepatitis, PUD, retained stone in GB duct, gastroenteritis, Provider Diagnoses: Acute Abdominal Pain. Tobacco Abuse Disorder. - Physician Notifications Discussed Patient Care With: Didi Mccoy - regarding transfer to ED Time Discussed With Above Provider: 21:02 Discharge - Discharge Plan Condition: Stable Disposition: TRANS [facility] OF CARE FAC Referrals: Rene Barrera MD [Primary Care Provider] - The documentation as recorded by the Ilan thornton Benjamin accurately reflects the service I personally performed and the decisions made by , Sangeeta Merlos MD.
== END 2017-04-15 21:26 | disposition short-term general hospital (02) ==
LOC: UCEAST 20:04
DX: R10.13 Epigastric pain (principal); F17.210 Nicotine dependence, cigarettes, uncomplicated
CPT/HCPCS: 96374; 99213; G0463; J2405

== ENCOUNTER 2017-04-15 21:43 | Emergency (ER) | payer OTHER ==
[2017-04-15] MEDS ORDERED: Ondansetron INJ* 2 MG/ML VIAL IV ONE (22:14)
[2017-04-15] MEDS ORDERED: NS 0.9% 1000 ML* 1,000 ML IV ONE (22:14)
[2017-04-15] MEDS ORDERED: HYDROmorphone* 1 MG/ML 1 ML SYR IV ONE (22:14)
[2017-04-15 22:49] LABS: Hematocrit 44 % (35-47); Hemoglobin 14.5 g/dl (12.0-16.0); Mean Corpuscular HGB Conc 33 g/dl (31-36); Mean Corpuscular Hemoglobin 30 pg (27-31); Mean Corpuscular Volume 90 fL (80-97); Mean Platelet Volume 10 um3 (7.4-10.4); Red Cell Distribution Width 13 % (10.5-15)
[2017-04-15 23:04] LABS: Albumin 4.6 g/dL (3.2-5.2); BUN/Creatinine Ratio 21.3 (8-20); C Reactive Protein 3.03 mg/L (< 5.00); Calcium 9.5 mg/dL (8.6-10.3); EGFR Non-African American 81.6 (>60); Globulin 3.3 g/dL (2-4); Total Bilirubin 0.4 mg/dL (0.2-1.0); Total Protein 7.9 g/dL (6.4-8.9)
[2017-04-15 23:07] LABS: Troponin I 0.01 ng/mL (<0.04)
[2017-04-15 23:09] LABS: Potassium 4.1 mmol/L (3.5-5.0)
[2017-04-15 23:12] VITALS: BP 114/72
[2017-04-15] MEDS ORDERED: oxyCODONE/Acetamin 5/325 MG* TAB PO ONE (23:45)
--- NOTE | 2017-04-16 00:33 | ED ---
Jaqui Valdez Salem, scribed for Dawood Mckenzie MD on 04/15/17 at 2205 . Abdominal Pain/Female - HPI Summary HPI Summary: Patient is a 36 y/o F who presents to the ED with stabbing epigastric pain since 1300. She reports nausea (aggravated with food); however, she states that she was able to eat. She had pork roast at noon today and chicken skyla for dinner. Pt states that holding abd improves pain. LMP was on 03/28/17. Drug allergy to Penicillin, ASA, and Bactrim. - History of Current Complaint Chief Complaint: EDAbdPain Stated Complaint: ABD PAIN Time Seen by Provider: 04/15/17 21:56 Hx Obtained From: Patient Hx Last Menstrual Period: March 28, 2017 Onset/Duration: Gradual Onset, Lasting Hours, Still Present Timing: Constant Severity Initially: Moderate Severity Currently: Moderate Pain Intensity: 10 Pain Scale Used: 0-10 Numeric Location: Epigastric Radiates: No Character: Other: - Stabbing. Aggravating Factor(s): Food Alleviating Factor(s): Other: - Holding. Associated Signs and Symptoms: Positive: Nausea Allergies/Adverse Reactions: Allergies Allergy/AdvReac Type Severity Reaction Status Date / Time Adhesive Tape [Paper Tape] Allergy See Comment Verified 04/15/17 20:14 Aspirin Allergy stops her Verified 04/15/17 20:14 heart Penicillins Allergy stops her Verified 04/15/17 20:14 heart Sulfamethoxazole Allergy Hives Verified 04/15/17 20:14 w/Trimethoprim [From Bactrim] PMH/Surg Hx/FS Hx/Imm Hx Endocrine/Hematology History: Denies: Hx Anticoagulant Therapy, Hx Diabetes, Hx Thyroid Disease Cardiovascular History: Denies: Hx Hypertension Respiratory History: Reports: Hx Asthma - prn meds, Hx Chronic Obstructive Pulmonary Disease (COPD) GI History: Reports: Other GI Disorders - reports umbilical hernia - surgery not scheduled yet Denies: Hx Ulcer History: Reports: Hx Kidney Stones - hx of - last in may 2016 Sensory History: Reports: Hx Contacts or Glasses - glasses Opthamlomology History: Reports: Hx Contacts or Glasses - glasses Neurological History: Reports: Hx Migraine - on meds Psychiatric History: Reports: Hx Anxiety - on meds, Hx Depression - on meds - Surgical History Surgery Procedure, Year, and Place: cholecystectomy 10/2012 - [place]. abcess removed from face - 10/08 - [place]. x2 2001, [place] and 2002 - [place]. 10/2016 - [facility] Hx Anesthesia Reactions: Yes - reports wakes with migraines - Immunization History Date of Tetanus Vaccine: UTD Date of Influenza Vaccine: 2014 Infectious Disease History: Reports: Hx of Known/Suspected MRSA - son has mrsa Denies: Hx Clostridium Difficile, Hx Hepatitis, Hx Human Immunodeficiency Virus (HIV), Hx Shingles, Hx Tuberculosis, Traveled Outside the [place] in Last 30 Days - Family History Known Family History: Positive: Cardiac Disease, Hypertension, Diabetes, Other - uterine CA - mother - Social History Alcohol Use: None Hx Substance Use: No Substance Use Type: Reports: Excessive Caffeine Substance Use Comment - Amount & Last Used: 2 cups coffee a day Hx Tobacco Use: Yes Smoking Status (MU): Light Every Day Tobacco Smoker Type: Cigarettes Amount Used/How Often: 4-5 cig a day Review of Systems Negative: Fever Positive: Abdominal Pain, Nausea All Other Systems Reviewed And Are Negative: Yes Physical Exam Triage Information Reviewed: Yes Vital Signs On Initial Exam: Last Vital Signs 04/15/17 04/15/17 21:58 22:04 Temperature 98.5 F Pulse Rate 91 88 Respiratory 26 15 Rate Blood Pressure 115/73 (mmHg) O2 Sat by Pulse 97 97 Oximetry Vital Signs Reviewed: Yes Appearance: Positive: Well-Appearing, No Pain Distress Skin: Positive: Warm, Skin Color Reflects Adequate Perfusion, Dry Head/Face: Positive: Normal Head/Face Inspection Eyes: Positive: Normal Neck: Positive: Supple, Nontender Respiratory/Lung Sounds: Positive: Clear to Auscultation, Breath Sounds Present Cardiovascular: Positive: RRR Abdomen Description: Positive: Soft, Other: - Mildly tender in epigastrium. Bowel Sounds: Positive: Present Musculoskeletal: Positive: Normal Neurological: Positive: Normal Psychiatric: Positive: Normal, Affect/Mood Appropriate Diagnostics - Vital Signs Vital Signs Temp Pulse Resp BP Pulse Ox 04/15/17 23:49 98 F 04/15/17 23:30 71 98 04/15/17 23:00 72 114/72 96 04/15/17 22:48 117/76 04/15/17 22:30 83 109/69 97 04/15/17 22:27 16 04/15/17 22:05 115/73 04/15/17 22:04 88 15 97 04/15/17 21:58 98.5 F 91 26 115/ 97 - Laboratory Lab Results: Lab Results 04/15/17 04/15/17 04/15/17 Range/Units 21:20 21:20 21:20 WBC 15.0 H (3.5-10.8) 10^3/ul RBC 4.90 (4.0-5.4) 10^6/ul Hgb 14.5 (12.0-16.0) g/dl Hct 44 (35-47) % MCV 90 (80-97) fL MCH 30 (27-31) pg MCHC 33 (31-36) g/dl RDW 13 (10.5-15) % Plt Count 256 (150-450) 10^3/ul MPV 10 (7.4-10.4) um3 Neut % (Auto) 63.6 (38-83) % Lymph % (Auto) 28.1 (25-47) % Wetzel % (Auto) 4.8 (1-9) % Eos % (Auto) 2.6 (0-6) % Baso % (Auto) 0.9 (0-2) % Absolute Neuts (auto) 9.5 H (1.5-7.7) 10^3/ul Absolute Lymphs (auto) 4.2 (1.0-4.8) 10^3/ul Absolute Monos (auto) 0.7 (0-0.8) 10^3/ul Absolute Eos (auto) 0.4 (0-0.6) 10^3/ul Absolute Basos (auto) 0.1 (0-0.2) 10^3/ul Absolute Nucleated RBC 0 10^3/ul Nucleated RBC % 0 Sodium 135 (133-145) mmol/L Potassium 4.1 (3.5-5.0) mmol/L Chloride 107 (101-111) mmol/L Carbon Dioxide 20 L (22-32) mmol/L Anion Gap 8 (2-11) mmol/L BUN 17 (6-24) mg/dL Creatinine 0.80 (0.51-0.95) mg/dL Est GFR ( Amer) 105.0 (>60) Est GFR (Non-Af Amer) 81.6 (>60) BUN/Creatinine Ratio 21.3 H (8-20) Glucose 105 H (70-100) mg/dL Lactic Acid 1.0 (0.5-2.0) mmol/L Calcium 9.5 (8.6-10.3) mg/dL Total Bilirubin 0.40 (0.2-1.0) mg/dL AST 20 (13-39) U/L ALT 13 (7-52) U/L Alkaline Phosphatase 50 (34-104) U/L Troponin I 0.01 (<0.04) ng/mL C-Reactive Protein 3.03 (< 5.00) mg/L Total Protein 7.9 (6.4-8.9) g/dL Albumin 4.6 (3.2-5.2) g/dL Globulin 3.3 (2-4) g/dL Albumin/Globulin Ratio 1.4 (1-3) Lipase 41 (11.0-82.0) U/L Beta HCG, Quant 0.60 mIU/mL Result Diagrams: 04/15/17 21:20 04/15/17 21:20 Lab Statement: Any lab studies that have been ordered have been reviewed, and results considered in the medical decision making process. - EKG 2244 EKG Interpretation: NSR @ 70 bpm. Normal. Re-Evaluation - Re-Evaluation First Eval Re-Evaluation Time: 23:26 Comment: Discussed plan. Pt is agreeable. Abdominal Pain Fem Course/Dx - Course Course Of Treatment: Ms. Neil presented with epigastric pain that improved when she pushed on it. Her W/U was negative here and she improved with some pain medication. I offered CT for further evaluation but she preferred to try going home and returning if the pain did. - Diagnoses Provider Diagnoses: Epigastric abdominal pain Discharge - Discharge Plan Condition: Stable Disposition: HOME Patient Education Materials: Epigastric Pain (ED) Referrals: Rene Barrera MD [Primary Care Provider] - Additional Instructions: Please follow up your primary care provider. The documentation as recorded by the Jaqui thornton Salem accurately reflects the service I personally performed and the decisions made by me, Dawood Mckenzie MD.
== END 2017-04-15 23:49 | disposition home or self-care (01) ==
LOC: ED 21:43
DX: R10.13 Epigastric pain (principal); R11.0 Nausea; Z32.02 Encounter for pregnancy test, result negative; J44.9 Chronic obstructive pulmonary disease, unspecified; Z87.442 Personal history of urinary calculi; G43.909 Migraine, unspecified, not intractable, without status migrainosus; F41.9 Anxiety disorder, unspecified; F32.9 Major depressive disorder, single episode, unspecified; Z90.49 Acquired absence of other specified parts of digestive tract; Z88.6 Allergy status to analgesic agent; Z88.0 Allergy status to penicillin; Z88.2 Allergy status to sulfonamides; Z91.048 Other nonmedicinal substance allergy status; F17.210 Nicotine dependence, cigarettes, uncomplicated
CPT/HCPCS: 36415; 80053; 83605; 83690; 84484; 84702; 85025; 86140; 93005; 96361; 96374; 96375; 99283; A9270-GY; J1170; J2405

== ENCOUNTER 2017-07-27 14:40 | Emergency (ER) | payer OTHER ==
[2017-07-27] MEDS ORDERED: oxyCODONE/Acetamin 5/325 MG* TAB PO ONE (15:46)
[2017-07-27 16:48] LABS: UR Preg Internal Control QC Line Present
--- NOTE | 2017-07-27 17:19 | RAD ---
INDICATION: Left foot pain COMPARISON: None TECHNIQUE: AP, lateral, and oblique views were obtained. FINDINGS: The bony structures, joint spaces, and soft tissues are normal for age. IMPRESSION: NO ACUTE BONY FINDINGS.
--- NOTE | 2017-07-27 17:29 | ED ---
Lower Extremity - HPI Summary HPI Summary: 36F presents with worsening left foot pain. She states she had surgery in 02/22 that was messed up. She states she needs further surgeries to be performed. She denies any numbness or tingling. Has history of neuroma that needs worked on. is taking tramadol for pain but that is not working. she spoke with [facility] and they said come to ED for xray and for pain meds for this weekend. She denies any new injury. She denies being on her feet more than normal. She denies any calf pain or swelling. - History of Current Complaint Chief Complaint: EDExtremityLower Stated Complaint: LT FOOT SWELLING Time Seen by Provider: 07/27/17 15:27 Hx Last Menstrual Period: March 28, 2017 Pain Intensity: 9 - Allergies/Home Medications Allergies/Adverse Reactions: Allergies Allergy/AdvReac Type Severity Reaction Status Date / Time Adhesive Tape [Paper Tape] Allergy See Comment Verified 07/27/17 14:47 Aspirin Allergy stops her Verified 07/27/17 14:47 heart Penicillins Allergy stops her Verified 07/27/17 14:47 heart Sulfamethoxazole Allergy Hives Verified 07/27/17 14:47 w/Trimethoprim [From Bactrim] PMH/Surg Hx/FS Hx/Imm Hx Endocrine/Hematology History: Reports: Hx Diabetes - PT STATES NO MEDICATION BEING TAKEN Denies: Hx Anticoagulant Therapy, Hx Thyroid Disease Cardiovascular History: Denies: Hx Hypertension, Hx Pacemaker/ICD Respiratory History: Reports: Hx Asthma - prn meds, Hx Chronic Obstructive Pulmonary Disease (COPD) GI History: Reports: Other GI Disorders - reports umbilical hernia - surgery not scheduled yet Denies: Hx Ulcer History: Reports: Hx Kidney Stones - hx of - last in may 2016 Denies: Hx Renal Disease Sensory History: Reports: Hx Contacts or Glasses - glasses Denies: Hx Hearing Aid Opthamlomology History: Reports: Hx Contacts or Glasses - glasses Neurological History: Reports: Hx Migraine - on meds Psychiatric History: Reports: Hx Anxiety - on meds, Hx Depression - on meds, Hx Panic Disorder - ANXIETY - Surgical History Surgery Procedure, Year, and Place: cholecystectomy 10/2012 - [place]. abcess removed from face - 10/08 - [place]. x2 2001, [place] and 2002 - . 10/2016 - [facility]. LEFT FOOT SUGERY 02/22/17 Hx Anesthesia Reactions: Yes - reports wakes with migraines - Immunization History Date of Tetanus Vaccine: UTD Date of Influenza Vaccine: 2014 Infectious Disease History: No Infectious Disease History: Reports: Hx of Known/Suspected MRSA - son has mrsa Denies: Hx Clostridium Difficile, Hx Hepatitis, Hx Human Immunodeficiency Virus (HIV), Hx Shingles, Hx Tuberculosis, Traveled Outside the [place] in Last 30 Days - Family History Known Family History: Positive: Cardiac Disease, Hypertension, Diabetes, Other - uterine CA - mother - Social History Alcohol Use: None Hx Substance Use: No Substance Use Type: Reports: None Substance Use Comment - Amount & Last Used: 2 cups coffee a day Hx Tobacco Use: Yes Smoking Status (MU): Light Every Day Tobacco Smoker Type: Cigarettes Amount Used/How Often: 4-5 cig a day Review of Systems Negative: Fever Negative: Chest Pain Negative: Shortness Of Breath Positive: Myalgia - left foot pain All Other Systems Reviewed And Are Negative: Yes Physical Exam Triage Information Reviewed: Yes Vital Signs On Initial Exam: Initial Vitals Temp Pulse Resp BP Pulse Ox 97.4 F 82 16 127/76 97 07/27/17 14:43 07/27/17 14:43 07/27/17 14:43 07/27/17 14:43 07/27/17 14:43 Vital Signs Reviewed: Yes Appearance: Positive: Well-Appearing Skin: Positive: Warm, Dry Head/Face: Positive: Normal Head/Face Inspection Eyes: Positive: Normal, Conjunctiva Clear ENT: Positive: Normal ENT inspection, Pharynx normal, TMs normal Respiratory/Lung Sounds: Positive: Clear to Auscultation, Breath Sounds Present Cardiovascular: Positive: Normal, RRR Musculoskeletal: Positive: Strength/ROM Intact - left foot, Other - good pulses , capillary refill<2 secs, tenderness over bottom area of foot. Negative: Edema Left Diagnostics - Vital Signs Vital Signs Temp Pulse Resp BP Pulse Ox 07/27/17 15:50 16 07/27/17 14:43 97.4 F 82 16 127/76 97 - Laboratory Lab Results: Lab Results 07/27/17 Range/Units 16:15 Urine Test Negative (Negative) Lab Statement: Any lab studies that have been ordered have been reviewed, and results considered in the medical decision making process. - Radiology foot Xray Interpretation: No Acute Changes Radiology Interpretation Completed By: Radiologist Lower Extremity Course/Dx - Course Course Of Treatment: 36F presents with worsening left foot pain. She states she had surgery in 02/22 that was messed up. She states she needs further surgeries to be performed. She denies any numbness or tingling. Has history of neuroma that needs worked on. is taking tramadol for pain but that is not working. she spoke with [facility] and they said come to ED for xray and for pain meds for this weekend. She denies any new injury. She denies being on her feet more than normal. She denies any calf pain or swelling. good strength of foot, neurovaschular intact. xray normal. will treat with percocet. have follow up with ortho. patient understands and agrees with plan. - Diagnoses Differential Diagnosis/HQI/PQRI: Positive: Fracture (Closed), Sprain, Strain Provider Diagnoses: Left foot pain Discharge - Discharge Plan Condition: Good Disposition: HOME Prescriptions: oxyCODONE/Acetamin 5/325 MG* [Percocet 5/325 TAB*] 1 tab PO Q6H PRN #8 tab MDD 4 PRN Reason: Pain - Severe Referrals: No Primary Care Phys,NOPCP [Primary Care Provider] - Abhishek Trejo MD [Medical Doctor] - Additional Instructions: Take Tylenol or ibuprofen every 6 hours as needed for pain, use narcotic for break through pain Apply ice, rest, elevate Follow up with ortho Return to ED if develop any new or worsening symptoms
[2017-07-27 17:41] VITALS: BP 114/70
== END 2017-07-27 17:40 | disposition home or self-care (01) ==
LOC: ED 14:40
DX: M79.672 Pain in left foot (principal); F17.210 Nicotine dependence, cigarettes, uncomplicated
CPT/HCPCS: 81025; 99282; A9270-GY

== ENCOUNTER 2018-11-16 21:42 | Emergency (ER) | payer OTHER ==
--- NOTE | 2018-11-16 21:52 | UC ---
Complaint Female HPI - HPI Summary HPI Summary: 38 y/o female presents to the urgent care c/o vaginal discharge w/ some bumps in the vulva for the past 3-4 week. Pt reports she forgot her tampon about 4 weeks ago, she removed it 2 days later. Then she developed a severe vaginal discharge. She saw her PCP Dr Bettencourt and he Rx Fluconazole PO x 7 days. She finished medication and her vaginal discharge was still very mild. Then she got her menstrual period which worsen her symptoms. Now for the pat 4 days she has developed frequency and burning on urination w/ some scattered bumps and swelling in her vulva. when she urinates is very painful 10/10. Pt denies Hx of STd's, fever, SOB, chest pain, abdominal pain, N/V/D, flank pain. She took ibuprofen po 800mg PO this afternoon to alleviate symptoms. - History Of Current Complaint Stated Complaint: PERSONAL Time Seen by Provider: 11/16/18 21:47 Hx Obtained From: Patient Hx Last Menstrual Period: March 28, 2017 Onset/Duration: Gradual Onset, Lasting Weeks - 3 weeks, Still Present, Worse Since - 3 days Timing: Constant Severity Initially: Mild Severity Currently: Moderate Pain Intensity: 9 - on urination Pain Scale Used: 0-10 Numeric Character: Burning Aggravating Factor(s): Urination Alleviating Factor(s): Nothing Associated Signs And Symptoms: Positive: Vaginal Discharge, Genital Swelling, Genital Blisters. Negative: Fever, Back Pain, Nausea, Vomiting(# Of Episodes =) - Risk Factors Ectopic Risk Factor: Negative Ovarian Torsion Risk Factor: Negative - Allergies/Home Medications Allergies/Adverse Reactions: Allergies Allergy/AdvReac Type Severity Reaction Status Date / Time aspirin Allergy Severe cardiac Verified 11/16/18 21:59 arrest Penicillins Allergy Severe cardiac Verified 11/16/18 21:59 arrest sulfamethoxazole Allergy Intermediate Hives Verified 11/16/18 21:59 [From Bactrim] trimethoprim [From Bactrim] Allergy Intermediate Hives Verified 11/16/18 21:59 Adhesive Tape [Paper Tape] Allergy See Comment Verified 11/16/18 21:59 Home Medications: Home Medications SUMAtriptan TAB* [Imitrex TAB*] 25 mg PO SEE INSTRUCTIONS 11/16/18 [History Confirmed 11/16/18] PMH/Surg Hx/FS Hx/Imm Hx Previously Healthy: Yes Other Endocrine History: hypoglycemia Respiratory History: COPD, Asthma Neurological History: Migraine Other History Of: Negative For: Anticoagulant Therapy - Surgical History Surgical History: Yes Surgery Procedure, Year, and Place: cholecystectomy 10/2012 - [place]. abcess removed from face - 10/08 - [place]. x2 2001, [place] and 2002 - [place]. 10/2016 - [facility]. LEFT FOOT SUGERY 02/22/17 - Family History Known Family History: Positive: Cardiac Disease, Hypertension, Diabetes, Other - uterine CA - mother - Social History Occupation: Employed Full-time Lives: With Family Alcohol Use: None Substance Use Type: None Substance Use Comment - Amount & Last Used: 2 cups coffee a day Smoking Status (MU): Light Every Day Tobacco Smoker Type: Cigarettes Amount Used/How Often: 4-5 cig a day Household Exposure Type: Cigarettes Review of Systems All Other Systems Reviewed And Are Negative: Yes Constitutional: Positive: Negative Skin: Positive: Negative Eyes: Positive: Negative ENT: Positive: Negative Respiratory: Positive: Negative Cardiovascular: Positive: Negative Gastrointestinal: Positive: Negative Genitourinary: Positive: Dysuria, Frequency, Urgency, Vaginal/Penile Burning, Vaginal/Penile Itching, Vaginal/Penile Discharge, Ulceration/Lesion - blisters in labia majora Motor: Positive: Negative Neurovascular: Positive: Negative Musculoskeletal: Positive: Negative Neurological: Positive: Negative Psychological: Positive: Negative Is Patient Immunocompromised?: No Physical Exam - Summary Physical Exam Summary: Vital signs: reviewed General: well developed, well nourished female sitting in the examining table w/o any acute distress. Head: Normocephalic, no lesions. Eyes: PERRLA, EOM's full, conjunctiva clear, fundi grossly normal. Ears: EAC's clear, TM's normal. Nose: Mucosa normal, no obstruction. Throat: Clear, no exudates, no lesions. Neck: Supple, no masses, no thyromegaly, no bruits. Chest: Lungs clear, no rales, no rhonchi, no wheezes. Heart: RR, no murmurs, no rubs, no gallops. Abdomen: Soft, no tenderness, no masses, BS normal. Pelvic: I was assisted by nurse Roseann. B/L labia majora scattered painful blisters, erythema and swelling no masses noted. Speculum exam: The vaginal jo are within normal limits w/ grayish bloody vaginal discharge, some blisters at entrance of vagina. The cervix is closed with no lesions or masses. There is no CMT's, and no adnexal masses. Sample sent to Lab for G/C and Affirm panel. sample taken from blisters to r/o herpes Rectal: No lesions, no hemorrhoids, Back: Normal curvature, no tenderness. Extremities: FROM, no deformities, no edema, no erythema. Neuro: Physiological, no localizing findings. Skin: Normal, no rashes, no lesions noted. Triage Information Reviewed: Yes Complaint Female Dx - Course Course Of Treatment: 38 y/o female presents to the urgent care c/o vaginal discharge w/ some bumps in the vulva for the past 3-4 week. Pt reports she forgot her tampon about 4 weeks ago, she removed it 2 days later. Then she developed a severe vaginal discharge. She saw her PCP Dr Bettencourt and he Rx Fluconazole PO x 7 days. She finished medication and her vaginal discharge was still very mild. Then she got her menstrual period which worsen her symptoms. Now for the pat 4 days she has developed frequency and burning on urination w/ some scattered bumps and swelling in her vulva. when she urinates is very painful 10/10. Pt denies Hx of STd's, fever, SOB, chest pain, abdominal pain, N/ V/D, flank pain. She took ibuprofen po 800mg PO this afternoon to alleviate symptoms. Hx obtained. Pt is hemodynamically stable I was assited by Nurse Roseann for Speculum exam: B/L labia majora scattered painful blisters, erythema and swelling no masses noted. Speculum exam: The vaginal jo are within normal limits w/ grayish bloody vaginal discharge, some blisters at entrance of vagina. The cervix is closed with no lesions or masses. There is no CMT's, and no adnexal masses. Sample sent to Lab for G/C, trichomonas and affirm panel. Swab taken from blisters and sent to lab for wound culture to r/o herpes. UA: 3+trace leukoesterase, 3+blood. test:negative. Pt w/ a UTI and probably a combination of BV and Candidiasis. Vulvar rash probably herpes vs Xiomara rash. Pt given Ciprofloxacin PO, Metronidazole PO and Pyridium and hydrocortisone topical cream at the clinic tonight to alleviate symptoms. Medications sent to pharmacy as directed below. Pt Given referral w/ [employer] [facility] Dr Rodriguez in 1-2 days for a PAP and further management. Pt Advised she will be notified if any abnormal result from lab.Pt's BP is elevated today advised to decrease salt in diet, monitor BP and f/u with PCP for further management. D/C instructions explained. Pt understood and agreed with plan of care. - Differential Dx/Diagnosis Differential Diagnosis/HQI/PQRI: Cervicitis, Pelvic Inflammatory Disease, , Renal Colic, Sexually Transmitted Disease, Ureteral Stone, Urinary Tract Infection, Other - herpes Provider Diagnosis: Bacterial vaginosis, UTI (urinary tract infection), Dysuria, Screening for STD (sexually transmitted disease), Vulvar rash, Elevated BP without diagnosis of hypertension Discharge - Sign-Out/Discharge Documenting (check all that apply): Patient Departure - D/C home All imaging exams completed and their final reports reviewed: No Studies - Discharge Plan Condition: Stable Disposition: HOME Prescriptions: Ciprofloxacin TAB* [Cipro 500 MG TAB*] 500 mg PO BID #13 tab Fluconazole 150 MG TAB* [Diflucan 150 MG TAB*] 150 mg PO UC ONCE #1 tablet metroNIDAZOLE * 500 mg PO BID #13 tablet Miconazole VAGINAL CREAM 2%* 1 applic VAGINAL BEDTIME #1 tube Phenazopyridine TAB* [Pyridium 100 mg TAB*] 100 mg PO TID #5 tab Patient Education Materials: Bacterial Vaginosis (ED), Urinary Tract Infection in Women (ED), Yeast Infection (ED) Referrals: [facility] [Outside] - 2 Days Marimar Rodriguez MD [Medical Doctor] - 2 Days Additional Instructions: 1- Please take ciprofloxacin PO PO x 7 days. Pyridium 100 mg PO TID x 2 days to alleviate urinary symptoms. Increase increase fluid intake. drink cranberry juice. 2-Urine sent for culture if any abnormality, you will be notified for further treatment. 3- Take Metronidazole PO to alleviate vaginal discharge. Apply hydrcortisone topical cream tonight to alleviate symptoms. Tomorrow apply Miconazole topical t cream to alleviate vulva rash. Please do not drink alcohol while taking medication and avoid sexual intercourse. 3-Specimen were sent to lab to screen for STD's and herpes you will be notified of any abnormal result and further management 4- please f/u with your PCp of [employer] Dr Rodriguez for further management on your symptoms. 5- Your BP is elevated today. please decrease salt in your diet, monitor BP and if it continues to be elevated please f/u with your PCP for further management. - Billing Disposition and Condition Condition: STABLE Disposition: Home - Attestation Statements Provider Attestation: Patient was seen by the NINA. The patient was presented to me and plan of care discussed with me . Patient was not seen by or examined by me -Arnulfo Trejo MD
[2018-11-16 21:57] VITALS: BP 148/87
[2018-11-16] MEDS ORDERED: Ciprofloxacin TAB* 500 MG PO ONE (22:15)
[2018-11-16] MEDS ORDERED: metroNIDAZOLE TAB* 250 MG PO ONE (22:16)
[2018-11-16] MEDS ORDERED: Phenazopyridine TAB* 100 MG PO ONE (22:19)
[2018-11-16] MEDS ORDERED: Hydrocortisone 1% CREAM* 30 GM TUBE TOPICAL ONE (22:20)
--- NOTE | 2018-11-17 16:20 | UC ---
- Progress Note Progress Note: Patient positive for trichomonas. Negative for gardnerella and zeina. GC/ chlamydia and HSV still pending. She was placed on cipro and metronidazole which will treat for the trichomoniasis. Her sexual partners should also be treated and she should abstain from sexual intercourse until she and her partner (s) have completed treatment and are free from symptoms. Course/Dx - Diagnoses Provider Diagnoses: Bacterial vaginosis, UTI (urinary tract infection), Dysuria, Screening for STD (sexually transmitted disease), Vulvar rash, Elevated BP without diagnosis of hypertension Discharge - Sign-Out/Discharge Documenting (check all that apply): Post-Discharge Follow Up All imaging exams completed and their final reports reviewed: No Studies - Discharge Plan Condition: Stable Disposition: HOME Prescriptions: Ciprofloxacin TAB* [Cipro 500 MG TAB*] 500 mg PO BID #13 tab Fluconazole 150 MG TAB* [Diflucan 150 MG TAB*] 150 mg PO UC ONCE #1 tablet metroNIDAZOLE * 500 mg PO BID #13 tablet Miconazole VAGINAL CREAM 2%* 1 applic VAGINAL BEDTIME #1 tube Phenazopyridine TAB* [Pyridium 100 mg TAB*] 100 mg PO TID #5 tab Patient Education Materials: Bacterial Vaginosis (ED), Urinary Tract Infection in Women (ED), Yeast Infection (ED) Referrals: [facility] [place] [facility]ERR[facility] [Outside] - 2 Days Marimar Rodriguez MD [Medical Doctor] - 2 Days Additional Instructions: 1- Please take ciprofloxacin PO PO x 7 days. Pyridium 100 mg PO TID x 2 days to alleviate urinary symptoms. Increase increase fluid intake. drink cranberry juice. 2-Urine sent for culture if any abnormality, you will be notified for further treatment. 3- Take Metronidazole PO to alleviate vaginal discharge. Apply hydrcortisone topical cream tonight to alleviate symptoms. Tomorrow apply Miconazole topical t cream to alleviate vulva rash. Please do not drink alcohol while taking medication and avoid sexual intercourse. 3-Specimen were sent to lab to screen for STD's and herpes you will be notified of any abnormal result and further management 4- please f/u with your PCp of QUILTING SUPERVISOR Dr Rodriguez for further management on your symptoms. 5- Your BP is elevated today. please decrease salt in your diet, monitor BP and if it continues to be elevated please f/u with your PCP for further management. - Billing Disposition and Condition Condition: STABLE Disposition: Home
[2018-11-18 22:12] LABS: HSV 1 PCR Negative (Negative); Herpes Source LABIA MAJORA
--- NOTE | 2018-11-19 07:28 | UC ---
- Progress Note Progress Note: PLS CALL PT. SWAB POSITIVE FOR HSV II. START VALACYCLOVIR 1000MG PO BID X 10 DAYS. ERX SENT TO [facility]. NO SEXUAL INTERCOURSE OR INTIMATE CONTACT OF THE AFFECTED AREA UNTIL ALL LESIONS ARE HEALED. MUST NOTIFY ALL CURRENT AND FUTURE SEXUAL PARTNERS. Course/Dx - Diagnoses Provider Diagnoses: Bacterial vaginosis, UTI (urinary tract infection), Dysuria, Screening for STD (sexually transmitted disease), Vulvar rash, Elevated BP without diagnosis of hypertension Discharge - Sign-Out/Discharge Documenting (check all that apply): Post-Discharge Follow Up All imaging exams completed and their final reports reviewed: No Studies - Discharge Plan Condition: Stable Disposition: HOME Prescriptions: Ciprofloxacin TAB* [Cipro 500 MG TAB*] 500 mg PO BID #13 tab Fluconazole 150 MG TAB* [Diflucan 150 MG TAB*] 150 mg PO UC ONCE #1 tablet metroNIDAZOLE * 500 mg PO BID #13 tablet Miconazole VAGINAL CREAM 2%* 1 applic VAGINAL BEDTIME #1 tube Phenazopyridine TAB* [Pyridium 100 mg TAB*] 100 mg PO TID #5 tab Valacyclovir HCl [Valacyclovir] 1,000 mg PO BID #20 tablet Patient Education Materials: Bacterial Vaginosis (ED), Urinary Tract Infection in Women (ED), Yeast Infection (ED) Referrals: [facility] [place] [facility] [Outside] - 2 Days Marimar Rodriguez MD [Medical Doctor] - 2 Days Additional Instructions: 1- Please take ciprofloxacin PO PO x 7 days. Pyridium 100 mg PO TID x 2 days to alleviate urinary symptoms. Increase increase fluid intake. drink cranberry juice. 2-Urine sent for culture if any abnormality, you will be notified for further treatment. 3- Take Metronidazole PO to alleviate vaginal discharge. Apply hydrcortisone topical cream tonight to alleviate symptoms. Tomorrow apply Miconazole topical t cream to alleviate vulva rash. Please do not drink alcohol while taking medication and avoid sexual intercourse. 3-Specimen were sent to lab to screen for STD's and herpes you will be notified of any abnormal result and further management 4- please f/u with your PCp of CAREER GUIDANCE TECHNICIAN Dr Rodriguez for further management on your symptoms. 5- Your BP is elevated today. please decrease salt in your diet, monitor BP and if it continues to be elevated please f/u with your PCP for further management. - Billing Disposition and Condition Condition: STABLE Disposition: Home
== END 2018-11-16 22:44 | disposition home or self-care (01) ==
LOC: UCEAST 21:42
DX: N76.0 Acute vaginitis (principal); N39.0 Urinary tract infection, site not specified; R03.0 Elevated blood-pressure reading, without diagnosis of hypertension; Z32.02 Encounter for pregnancy test, result negative; G43.909 Migraine, unspecified, not intractable, without status migrainosus; Z88.6 Allergy status to analgesic agent; Z88.0 Allergy status to penicillin; Z88.2 Allergy status to sulfonamides; Z91.048 Other nonmedicinal substance allergy status; F17.210 Nicotine dependence, cigarettes, uncomplicated
CPT/HCPCS: 81003; 84702; 87086; 87480; 87491; 87510; 87529; 87591; 87660; 99213; A9270-GY; G0463

== ENCOUNTER → 2019-05-14 03:09 | Emergency (ER) | payer SELFPAY ==
--- NOTE | 2019-05-14 04:29 | ED ---
Headache - HPI Summary HPI Summary: Patient is a 38 y/o F presenting to ED with complaints of SUNSHINE over the left eye. She reports Hx of headaches and notes that she typically experiences one every month. However, present SUNSHINE is the worst one she has had for the past few months. Patient notes that she took a sumatriptan shot and Tylenol LEGAL SUPPORT MANAGER but did not experience relief in Sx. Photophobia, N/V are endorsed. She additionally states that she takes magnesium oxide for her HAs. Home medications and allergies are reviewed. - History Of Current Complaint Stated Complaint: HEADACHE PER PT Hx Obtained From: Patient Hx Last Menstrual Period: March 28, 2017 Onset/Duration: Still Present Timing: Constant Location of Headache: Other: - over left eye Aggravating Factor: Bright Lights Allevating Factors: Nothing Associated Signs And Symptoms: Nausea, Vomiting - Allergies/Home Medications Allergies/Adverse Reactions: Allergies Allergy/AdvReac Type Severity Reaction Status Date / Time aspirin Allergy Severe cardiac Verified 05/14/19 04:24 arrest Penicillins Allergy Severe cardiac Verified 05/14/19 04:24 arrest sulfamethoxazole Allergy Intermediate Hives Verified 05/14/19 04:24 [From Bactrim] trimethoprim [From Bactrim] Allergy Intermediate Hives Verified 05/14/19 04:24 Adhesive Tape [Paper Tape] Allergy See Comment Verified 05/14/19 04:24 PMH/Surg Hx/FS Hx/Imm Hx Endocrine/Hematology History: Reports: Hx Diabetes - PT STATES NO MEDICATION BEING TAKEN Denies: Hx Anticoagulant Therapy, Hx Thyroid Disease Cardiovascular History: Denies: Hx Hypertension, Hx Pacemaker/ICD Respiratory History: Reports: Hx Asthma - prn meds, Hx Chronic Obstructive Pulmonary Disease (COPD) GI History: Reports: Other GI Disorders - reports umbilical hernia - surgery not scheduled yet Denies: Hx Ulcer History: Reports: Hx Kidney Stones - hx of - last in may 2016 Denies: Hx Renal Disease Sensory History: Reports: Hx Contacts or Glasses - glasses Denies: Hx Hearing Aid Opthamlomology History: Reports: Hx Contacts or Glasses - glasses Neurological History: Reports: Hx Migraine - on meds Psychiatric History: Reports: Hx Anxiety - on meds, Hx Depression - on meds, Hx Panic Disorder - ANXIETY - Surgical History Surgery Procedure, Year, and Place: cholecystectomy 10/2012 - [place]. abcess removed from face - 10/08 - [place]. x2 2001, [place] and 2002 - [place]. 10/2016 - [facility]. LEFT FOOT SUGERY 02/22/17 Hx Anesthesia Reactions: Yes - reports wakes with migraines - Immunization History Date of Tetanus Vaccine: UTD Date of Influenza Vaccine: 2014 Infectious Disease History: Reports: Hx of Known/Suspected MRSA - son has mrsa Denies: Hx Clostridium Difficile, Hx Hepatitis, Hx Human Immunodeficiency Virus (HIV), Hx Shingles, Hx Tuberculosis, Traveled Outside the [place] in Last 30 Days - Family History Known Family History: Positive: Cardiac Disease, Hypertension, Diabetes, Other - uterine CA - mother - Social History Alcohol Use: None Hx Substance Use: No Substance Use Type: Reports: None Substance Use Comment - Amount & Last Used: 2 cups coffee a day Hx Tobacco Use: Yes Smoking Status (MU): Light Every Day Tobacco Smoker Type: Cigarettes Amount Used/How Often: 4-5 cig a day Review of Systems Positive: Photophobia Positive: Vomiting, Nausea Positive: Headache All Other Systems Reviewed And Are Negative: Yes Physical Exam - Summary Physical Exam Summary: VITAL SIGNS: Reviewed. GENERAL: Patient is a well-developed and nourished female who is lying comfortable in the stretcher. Patient is not in any acute respiratory distress. HEAD AND FACE: No signs of trauma. No ecchymosis, hematomas or skull depressions. No sinus tenderness. EYES: PERRLA, EOMI x 2, No injected conjunctiva, no nystagmus. EARS: Hearing grossly intact. Ear canals and tympanic membranes are within normal limits. MOUTH: Oropharynx within normal limits. NECK: Supple, trachea is midline, no adenopathy, no JVD, no carotid bruit, no c- spine tenderness, neck with full ROM CHEST: Symmetric, no tenderness at palpation LUNGS: Clear to auscultation bilaterally. No wheezing or crackles. CVS: Regular rate and rhythm, S1 and S2 present, no murmurs or gallops appreciated. ABDOMEN: Soft, non-tender. No signs of distention. No rebound no guarding, and no masses palpated. Bowel sounds are normal. EXTREMITIES: FROM in all major joints, no edema, no cyanosis or clubbing. NEURO: Alert and oriented x 3. No acute neurological deficits. Speech is normal and follows commands. SKIN: Dry and warm Triage Information Reviewed: Yes Vital Signs Reviewed: Yes Re-Evaluation - Re-Evaluation First Eval Re-Evaluation Time: 04:49 Change: Improved Comment: Patient reports feeling better, she will be discharged to home and follow up with PCP. Headache Course/Dx - Course Course Of Treatment: Patient is a 38 y/o F presenting to ED with complaints of SUNSHINE over the left eye. She reports Hx of headaches and notes that she typically experiences one every month. However, present SUNSHINE is the worst one she has had for the past few months. Patient notes that she took a sumatriptan shot and Tylenol LEGAL SUPPORT MANAGER but did not experience relief in Sx. Photophobia, N/V are endorsed. Physical exam is unremarkable. Patient was given magnesium sulfate, toradol, Benadryl, reglan, and fluids. After medications, she reported relief in Sx. Patient discharged to home with PCP follow up. - Diagnoses Provider Diagnoses: Headache Discharge - Sign-Out/Discharge Documenting (check all that apply): Patient Departure - discharge Patient Received Moderate/Deep Sedation with Procedure: No - Discharge Plan Condition: Stable Disposition: HOME Patient Education Materials: General Headache (ED) Referrals: Abhishek Venegas MD [Primary Care Provider] - 3 Days Additional Instructions: PLEASE RETURN TO ED FOR ANY NEW OR WORSENING SYMPTOMS. FOLLOW UP WITH YOUR PRIMARY CARE PHYSICIAN WITHIN THREE DAYS. - Attestation Statements Document Initiated by Scribe: Yes Documenting Scribe: RYANNE MOTT Provider For Whom Philip is Documenting (Include Credential): MOHAMUD CERON MD Scribe Attestation: RYANNE Valdez, scribed for MOHAMUD CERON MD on 05/14/19 at 6166. Status of Scribe Document: Ready
[2019-05-14 04:32] VITALS: BP 137/89
== END | disposition home or self-care (01) ==
LOC: ED 03:09
DX: R51 Headache (principal); E11.9 Type 2 diabetes mellitus without complications; J44.9 Chronic obstructive pulmonary disease, unspecified; F17.210 Nicotine dependence, cigarettes, uncomplicated; Z88.1 Allergy status to other antibiotic agents; Z88.0 Allergy status to penicillin; Z88.2 Allergy status to sulfonamides; Z88.8 Allergy status to other drugs, medicaments and biological substances
CPT/HCPCS: 96374; 96375; 99283

== ENCOUNTER 2019-11-08 17:41 | Emergency (ER) | payer SELFPAY ==
[2019-11-08] MEDS ORDERED: Albuterol/Ipratropium NEB.SOL* Albuterol 2.5 MG/Ipratropium 0.5 MG 3 ML INH ONE ×3 (18:17→20:01)
--- NOTE | 2019-11-08 18:20 | ED ---
Respiratory - HPI Summary HPI Summary: Pt is a 39 y/o F presenting to the ED with a chief respiratory complaint. She states she's been coughing and wheezy for the past few days, but it has worsened. She also reports hot flashes, chills, aches in her chest, some nausea , sounding hoarse, and a migraine. She denies fever that she knows of. Hx migraines, COPD, asthma, hypoglycemia. - History of Current Complaint Chief Complaint: EDUpperRespComplaint Stated Complaint: CHEST PAIN PER PT Time Seen by Provider: 11/08/19 18:07 Hx Obtained From: Patient Onset/Duration: Gradual Onset, Lasting Hours, Lasting Days, Still Present Initial Severity: Mild Current Severity: Mild Pain Intensity: 3 Character: Wheezing, Cough (Productive) Sputum Amount: Moderate Aggravating Factor(s): Nothing Alleviating Factor(s): Nothing Associated Signs and Symptoms: SOB, Chest Pain, Chills, Hoarseness - Allergy/Home Medications Allergies/Adverse Reactions: Allergies Allergy/AdvReac Type Severity Reaction Status Date / Time aspirin Allergy Severe cardiac Verified 11/08/19 17:45 arrest Penicillins Allergy Severe cardiac Verified 11/08/19 17:45 arrest sulfamethoxazole Allergy Intermediate Hives Verified 11/08/19 17:45 [From Bactrim] trimethoprim [From Bactrim] Allergy Intermediate Hives Verified 11/08/19 17:45 Adhesive Tape [Paper Tape] Allergy See Comment Verified 11/08/19 17:45 PMH/Surg Hx/FS Hx/Imm Hx Previously Healthy: Yes Endocrine/Hematology History: Reports: Hx Diabetes - pt is hypoglycemic normally Denies: Hx Anticoagulant Therapy, Hx Thyroid Disease Cardiovascular History: Denies: Hx Hypertension, Hx Pacemaker/ICD Respiratory History: Reports: Hx Asthma - prn meds, Hx Chronic Obstructive Pulmonary Disease (COPD), Hx Pneumonia GI History: Reports: Other GI Disorders - reports umbilical hernia - surgery not scheduled yet Denies: Hx Ulcer History: Reports: Hx Kidney Stones - hx of - last in may 2016 Denies: Hx Renal Disease Sensory History: Reports: Hx Contacts or Glasses - glasses Denies: Hx Hearing Aid Opthamlomology History: Reports: Hx Contacts or Glasses - glasses Neurological History: Reports: Hx Migraine - on meds Psychiatric History: Reports: Hx Anxiety - on meds, Hx Depression - on meds, Hx Panic Disorder - ANXIETY - Surgical History Surgery Procedure, Year, and Place: cholecystectomy 10/2012 - [place]. abcess removed from face - 10/08 - [place]. x2 2001, [place] and 2002 - [place]. 10/2016 - [facility] [place]. LEFT FOOT SUGERY 02/22/17 Hx Anesthesia Reactions: Yes - reports wakes with migraines - Immunization History Date of Tetanus Vaccine: UTD Date of Influenza Vaccine: 2014 Infectious Disease History: No Infectious Disease History: Reports: Hx of Known/Suspected MRSA - son has mrsa Denies: Hx Clostridium Difficile, Hx Hepatitis, Hx Human Immunodeficiency Virus (HIV), Hx Shingles, Hx Tuberculosis, Traveled Outside the [place] in Last 30 Days - Family History Known Family History: Positive: Cardiac Disease, Hypertension, Diabetes, Other - uterine CA - mother - Social History Alcohol Use: None Hx Substance Use: No Substance Use Type: Reports: None Substance Use Comment - Amount & Last Used: 2 cups coffee a day Hx Tobacco Use: Yes Smoking Status (MU): Light Every Day Tobacco Smoker Type: Cigarettes Amount Used/How Often: 4-5 cig a day Review of Systems Positive: Chills, Other - hot flashes. Negative: Fever Positive: Chest Pain Positive: Shortness Of Breath, Cough, Other - wheezing Positive: Nausea Negative: Myalgia - legs, Edema - legs Positive: Headache All Other Systems Reviewed And Are Negative: Yes Physical Exam - Summary Physical Exam Summary: Constitutional: Well-developed, Well-nourished, Alert. (-) Distressed Skin: Warm, Dry HENT: Normocephalic; Atraumatic Eyes: Conjunctiva normal Neck: Musculoskeletal ROM normal neck. (-) JVD, (-) Stridor, (-) Tracheal deviation Cardio: Rhythm regular, rate normal, Heart sounds normal; Intact distal pulses; The pedal pulses are 2+ and symmetric. Radial pulses are 2+ and symmetric. (-) Murmur Pulmonary/Chest wall: Effort normal. (-) Respiratory distress, bilateral expiratory wheezing, mildly hoarse voice. Abd: Soft, (-) tenderness, (-) Distension, (-) Guarding, (-) Rebound Musculoskeletal: (-) Edema Lymph: (-) Cervical adenopathy Neuro: Alert, Oriented x3 Psych: Mood and affect Normal Triage Information Reviewed: Yes Vital Signs On Initial Exam: Initial Vitals Temp Pulse Resp BP Pulse Ox 97.8 F 94 19 143/83 96 11/08/19 17:42 11/08/19 17:42 11/08/19 17:42 11/08/19 17:42 11/08/19 17:42 Vital Signs Reviewed: Yes Procedures - Sedation Patient Received Moderate/Deep Sedation with Procedure: No Diagnostics - Vital Signs Vital Signs Temp Pulse Resp BP Pulse Ox 11/08/19 17:42 97.8 F 94 19 143/83 96 - Laboratory Lab Statement: Any lab studies that have been ordered have been reviewed, and results considered in the medical decision making process. - Radiology CXR Radiology Interpretation Completed By: ED Physician Summary of Radiographic Findings: No consolidation noted. Pending official radiology report. Disposition - Course Course Of Treatment: Pt is a 39 y/o F presenting to the ED with a chief respiratory complaint. She states she's been coughing and wheezy for the past few days, but it has worsened. She also reports hot flashes, chills, aches in her chest, some nausea, sounding hoarse, and a migraine. She denies fever that she knows of. Physical exam shows bilateral expiratory wheezing with a mildly hoarse voice. Pt negative for Influenza A&B. CXR shows no noted consolidation. Pending official radiology report. Pt will be d/c'ed with dx of asthma exacerbation. Pt is stable and agreeable with this plan. Patient given 3 duo nebs, dose of Solu-Medrol and Tylenol for her headache. CXR: NAD. Flu swab negative. Symptoms consistent with probable viral URI leading to asthma exacerbation. Patient feeling better and comfortable with discharge home. Given prescription for prednisone, DuoNeb solution for her home nebulizer and albuterol inhaler. - Diagnoses Provider Diagnoses: Asthma exacerbation Discharge ED - Sign-Out/Discharge Documenting (check all that apply): Patient Departure - Discharge Plan Condition: Stable Disposition: HOME Prescriptions: Albuterol HFA INHALER* [Ventolin HFA Inhaler*] 1 - 2 puff INH Q4H PRN #1 mdi PRN Reason: Wheezing Albuterol/Ipratropium NEB.TADEO* [Duoneb (Albuterol 2.5 MG/Ipratropium 0.5 MG)] 1 neb INH Q6H PRN #30 neb.tadeo PRN Reason: Wheezing predniSONE [Prednisone 20 MG TAB] 40 mg PO DAILY 4 Days #8 tablet Patient Education Materials: Asthma (ED) Referrals: Abhishek Venegas MD [Primary Care Provider] - Additional Instructions: Please follow up with your primary care provider within the next 1-3 days. Return to the emergency department with any new or worsening symptoms. - Billing Disposition and Condition Condition: STABLE Disposition: Home - Attestation Statements Document Initiated by Scribe: Yes Documenting Scribe: Brenda Chong Provider For Whom Philip is Documenting (Include Credential): Renan Hilario DO. Scribe Attestation: Brenda Valdez scribed for Renan Hilario DO. on 11/08/19 at 2136. Scribe Documentation Reviewed: Yes Provider Attestation: The documentation as recorded by the [email or web address] accurately reflects the service I personally performed and the decisions made by , Renan Hilario DO. Status of Scribe Document: Viewed
[2019-11-08 19:26] LABS: Influenza A Molecular NEGATIVE (Negative); Influenza B Molecular NEGATIVE (Negative)
[2019-11-08] MEDS ORDERED: Acetaminophen TAB* 325 MG PO ONE (20:03)
[2019-11-08] MEDS ORDERED: Ketorolac *IM* INJ* 60 MG/2 ML VIAL IM ONE (20:25)
[2019-11-08] MEDS ORDERED: Albuterol HFA INHALER* 8 gm MDI INH ONE (21:19)
[2019-11-08 21:26] VITALS: BP 114/88
--- NOTE | 2019-11-09 10:21 | ED ---
Imaging and Labs Follow Up Follow Up Type: Imaging Imaging Result: IMPRESSION: SMALL LEFT UPPER LOBE INFILTRATE. R3 Patient Communication/Plan: Called and spoke with pt. today at 1020 and discussed results. Rx for azithromycin sent to pharmacy. Provider Diagnoses: Asthma exacerbation
== END 2019-11-08 21:25 | disposition home or self-care (01) ==
LOC: ED 17:41
DX: J45.901 Unspecified asthma with (acute) exacerbation (principal); J44.9 Chronic obstructive pulmonary disease, unspecified; E11.9 Type 2 diabetes mellitus without complications; F41.9 Anxiety disorder, unspecified; F32.9 Major depressive disorder, single episode, unspecified; F17.210 Nicotine dependence, cigarettes, uncomplicated; Z87.442 Personal history of urinary calculi; Z90.49 Acquired absence of other specified parts of digestive tract; Z79.899 Other long term (current) drug therapy; Z88.0 Allergy status to penicillin; Z88.1 Allergy status to other antibiotic agents; Z88.2 Allergy status to sulfonamides; Z88.8 Allergy status to other drugs, medicaments and biological substances
CPT/HCPCS: 71046; 96372; 99283; A9270-GY; J1885; J7512